=== PATIENT | male | born 1960 | race Two or more races ===

== ENCOUNTER 2020-11-21 16:07 | Outpatient (REF) | payer OTHER, SELFPAY | END 2020-11-21 16:08 | disposition home or self-care (01) | LOC: HO.LAB 16:07 | PROVIDERS: PCP Pediatrics; Visit Provider Internal Medicine | DX: Z20.822 Contact with and (suspected) exposure to COVID-19 (principal) | CPT/HCPCS: 36415; C9803; U0003 ==

== ENCOUNTER 2020-12-07 12:57 | Outpatient (REF) | payer OTHER, SELFPAY ==
--- NOTE | 2020-12-07 13:00 | US_ITS ---
EXAMINATION: US SOFT TISSUE OF THE NECK CLINICAL INFORMATION: Localized swelling, mass and lump, neck. COMPARISON: None TECHNIQUE: Linear transducer grayscale and color Doppler examination of the left parotid. FINDINGS: Complex cystic lesion is seen in the left parotid gland measuring 2.3 x 1.1 x 2.4 cm. This has superficial positioning. There is increased through transmission with mixed internal echoes. No Doppler vascularity. This is wider than tall. No additional mass identified. US/US soft tiss head and/or neck IMPRESSION: Complex cyst superficially in the left parotid gland. No abnormal solid lesion identified.
== END 2020-12-07 12:58 | disposition home or self-care (01) ==
LOC: HO.US 12:57
PROVIDERS: Visit Provider Pediatrics
DX: R22.1 Localized swelling, mass and lump, neck (principal)
CPT/HCPCS: 76536

== ENCOUNTER 2021-05-16 12:21 | Emergency (ER) | payer OTHER, SELFPAY ==
--- NOTE | ~2021-05-16 | CT_ITS ---
EXAMINATION: CT ABDOMEN AND PELVIS WITH CONTRAST CLINICAL INFORMATION: Severe Central abdominal pain. COMPARISON: CT scan pelvis April 24, 2015 TECHNIQUE: Multidetector volumetric images were obtained from the superior aspect of the liver through the pubic symphysis following administration 85 mL of Omnipaque 350 intravenous contrast. Sagittal and coronal reformatted images were obtained on the technologist's workstation. Oral contrast: No This CT examination was performed using dose optimization techniques as appropriate, variously including the following: *Automated exposure control *Adjustment of mA and/or kV according to patient size (this includes techniques or standardized protocols for targeted exams where dose is matched to indication/reason for exam; i.e. extremities or head) *Use of iterative reconstruction technique DLP: 559 mGy-cm FINDINGS: LUNG BASES: The visualized lung bases are unremarkable. Calcified granuloma at the left lung base. LIVER, GALLBLADDER, AND BILIARY TREE: The liver is normal in size, shape, and attenuation. No focal hepatic lesion or biliary ductal dilatation is present. The gallbladder is unremarkable with no evidence of radiopaque gallstones, gallbladder wall thickening, or obvious pericholecystic inflammatory changes. PANCREAS: Unremarkable. SPLEEN: Spleen mildly enlarged measuring 15 cm of length. No focal splenic lesion. Spleen is unchanged since prior study April 24, 2015. ADRENAL GLANDS: Stable nodularity and thickening left adrenal gland unchanged since CAT scan April 24, 2015. The right adrenal gland is normal. KIDNEYS AND URETERS: The kidneys are normal in size, shape, and attenuation. No hydronephrosis, hydroureter, or calculi seen. No perinephric stranding. BLADDER: Unremarkable. GASTROINTESTINAL TRACT: No acute change of bowel. There are a few scattered diverticula of the colon but no diverticulitis. No bowel wall thickening or edema. No bowel obstruction. Stomach is normal. There is no hiatal hernia. MESENTERY: There are a few scattered small calcifications in the mesentery. No inflammation or free air. ABDOMINAL WALL: Small fat-containing umbilical hernia. LYMPH NODES: Normal. VASCULAR: Unremarkable. PELVIC VISCERA: Unremarkable. OSSEOUS STRUCTURES: Degenerative spondylosis with vacuum disc phenomenon L5-S1. CT/CT abdomen pelvis w con IMPRESSION: No acute abnormality CT scan abdomen pelvis. Stable thickening and nodularity left adrenal gland unchanged since 2014. Stable splenomegaly.
[2021-05-16 12:46] VITALS: BP 133/67; PULSE 74; RESP 18; TEMP 36.7; O2SAT 98; BMI 28.5
--- NOTE | 2021-05-16 15:29 | ED.GENADULT ---
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 He reports yesterday pain was 20/10, burning in nature. He states the pain occurs every time after he eats and starts in his epigastric area and radiates down into the left upper and central abdomen. No nausea, vomiting or diarrhea. Last had a BM yesterday morning. He reports his stools have been slightly darker than usual but not black. He denies bloody stools. No SOB, chest pain, dizziness or lightheadedness. MD complaint: abdominal pain Onset (ago): week(s) Location: abdomen Radiation: periumbilical Severity: severe Severity scale (1-10): >10 Quality: burning Pain Consistency: intermittent Relieving factors: medication (took some prilosec yesterday with improvement in the pain) Exacerbating factors: eating Associated symptoms: denies other symptoms Treatments prior to arrival: none Related Data Previous Rx's Medication Instructions Recorded pantoprazole [Protonix] 40 mg PO DAILY #30 tab 05/16/21 Allergies Allergy/AdvReac Type Severity Reaction Status Date / Time levofloxacin [From LEVAQUIN] Allergy Intermediate HIVES Verified 05/16/21 12:45 Sulfa (Sulfonamide Allergy Intermediate HIVES Verified 05/16/21 12:45 Antibiotics) [SULFA (SULFONAMIDE ANTIBIOTICS)] Review of Systems Review of Systems: Constitutional: No Fever, No Chills ENT/Mouth: No sore throat, No Rhinorrhea, No Swallowing Difficulty Eyes: No Eye Pain, No Swelling, No Redness Cardiovascular: No Chest Pain, No SOB, No Orthopnea, No Edema Respiratory: No Cough, No Sputum, No Wheezing, No dyspnea Gastrointestinal: No Nausea, No Vomiting, No Diarrhea, + abdominal Pain, No Hematochezia, No Melena Genitourinary: No Dysuria, No Urinary Frequency, No Hematuria Musculoskeletal: No joint pain, No Myalgias Skin: No Skin Lesions, No rash Neuro: No Weakness, No Numbness, No Dizziness, No Headache Psych: No Anxiety/Panic, No Depression Heme/Lymph: No Bruising, No Lymphadenopathy Endocrine: No Polyuria, No Polydipsia PMF Past Medical History Attestation statement: The following information was validated with the patient. Medical History Asthma Diabetic acetonemia GERD (gastroesophageal reflux disease) Hernia HIV disease Substance abuse in remission Surgical History (Updated 05/16/21 @ 12:50 by Cara Paez RN) History of intestinal surgery Social History Social History Advance Directives: Yes Advance Directives Information Provided: Yes Advance Directives on File: No Physical Exam Vital Signs: Vital Signs: Last Vital Signs Temp 98.0 F 05/16/21 12:46 Pulse 74 05/16/21 12:46 Resp 18 05/16/21 12:46 BP 133/67 05/16/21 12:46 Pulse Ox 98 05/16/21 12:46 Body Mass Index 28.5 Appearance: Alert. Oriented X3. No acute distress. Eyes: Pupils equal, round and reactive to light. ENT: Pharynx normal. Neck: Normal inspection. Neck supple. CVS: Normal heart rate and rhythm. Pulses normal. Respiratory: No respiratory distress. Breath sounds normal. Abdomen: Normal inspection, well healed longitudinal surgical scar consistent with prior surgery, no palpable mass. mild periumbilical and epgastric tenderness, no rebound or guarding. +BS x4 Skin: Skin warm and dry. Normal skin color. Normal skin turgor. No rashes. Extremities: No lower extremity edema. Neuro: Oriented X 3. No motor deficit. No sensory deficit. Course Course Course Narrative: 60 y/o male with history of HIV, DM2, s/p bowel resection in 2004 presenting with post-prandial abdominal pain, worsening over 6 weeks. Concern for possible PUD or gastritis. Ddx also includes possible pancreatitis or cholecystitis. Will get labs and CT scan for further assessment. GI cocktail ordered. Reevaluation(s) Reevaluation #1: Blood work returning with worsening microcytic anemia - H/H now 9.4/33.7 from 11.9/37.6 six months ago. He had normal H/H and MCV in 2019. We discussed the results and concern for occult GI bleed. He declined rectal exam. He reports his last BM was yesterday and he has only been going once per day. No melena. Pain is improved with GI cocktail. Reevaluation #2: CT scan negative for acute pathology. Discussed results and concerned about PUD vs gastritis vs H pylori. Recommend follow up with GI and starting PPI. Diet and medication adjustments discussed and importance of follow up. Warning signs also discussed that should prompt urgent re-evaluation - worsening pain, hematemesis, melena and symptoms of acute blood loss. Stable for discharge home. Medical Decision Making Lab Data Result diagrams: 05/16/21 15:32 05/16/21 15:32 Labs: Lab Results 05/16/21 05/16/21 05/16/21 Range/Units 15:32 15:32 15:32 WBC 5.5 (4.8-10.8) X10*3/uL RBC 5.12 (4.60-5.80) X10*6/uL Hgb 9.4 L (14.0-18.0) g/dl Hct 33.7 L (42-52) % MCV 65.8 L (80-98) fL MCH 18.4 L (27.0-33.0) pg MCHC 27.9 L (31.0-36.0) g/dl RDW 18.7 H (11.0-16.0) % Plt Count 176 (160-400) X10*3/uL MPV Not Reportable Immature Gran % (Auto) 0.2 (0.0-0.4) % Neut % (Auto) 53.1 (45-73) % Lymph % (Auto) 37.5 (20-40) % [place] % (Auto) 7.5 (2-11) % Eos % (Auto) 1.5 (0-4) % Baso % (Auto) 0.2 (0-2) % Lymph # (Auto) 2.1 (1.2-4.9) X10*3/uL [place] # (Auto) 0.4 (0.1-1.2) X10*3/uL Eos # (Auto) 0.1 (0.0-0.4) X10*3/uL Baso # (Auto) 0.0 (0.0-0.2) X10*3/uL Abs Immat Gran (auto) 0.01 (0.00-0.03) X10*3/uL Absolute Neuts (auto) 2.9 (2.0-8.3) X10*3/uL Absolute Nucleated RBC 0.000 (0.0-0.012) X10*3/uL Nucleated RBC % (auto) 0.0 (0.0-0.2) /100WBC Hold Blue Top SEE NOTE Sodium 142 (135-145) mmol/L Potassium 4.4 (3.3-5.1) mmol/L Chloride 104 (96-108) mmol/L Carbon Dioxide 28 (22-29) mmol/L Anion Gap 14 (12-20) BUN 16 (9-16) mg/dL Creatinine 1.01 (0.5-1.4) mg/dL Estim Creat Clear Calc 79.2 Estimated GFR > 60 Random Glucose 97 (60-115) mg/dL Lactic Acid (0.5-2.0) mmol/L Calcium 9.4 (8.4-10.2) mg/dL Magnesium 2.1 (1.6-2.6) mg/dL Total Bilirubin 0.5 (0.0-1.0) mg/dL Direct Bilirubin 0.2 (0.0-0.5) mg/dL AST 16 (5-37) U/L ALT 11 (0-40) U/L Alkaline Phosphatase 71 (39-117) U/L Total Protein 6.8 (6.5-8.0) g/dL Albumin 4.1 (3.5-5.0) g/dL Lipase 41 (8-78) U/L Urine Color Urine Appearance Urine pH (5.0-8.0) Ur Specific [place] (1.005-1.025) Urine Protein (NEG-TRACE) MG/DL Urine Glucose (UA) (NEG) MG/DL Urine Ketones (NEG) MG/DL Urine Blood (NEG) Urine Nitrite (NEG) Ur Leukocyte Esterase (NEG) 05/16/21 05/16/21 Range/Units 15:42 15:48 WBC (4.8-10.8) X10*3/uL RBC (4.60-5.80) X10*6/uL Hgb (14.0-18.0) g/dl Hct (42-52) % MCV (80-98) fL MCH (27.0-33.0) pg MCHC (31.0-36.0) g/dl RDW (11.0-16.0) % Plt Count (160-400) X10*3/uL MPV Immature Gran % (Auto) (0.0-0.4) % Neut % (Auto) (45-73) % Lymph % (Auto) (20-40) % [place] % (Auto) (2-11) % Eos % (Auto) (0-4) % Baso % (Auto) (0-2) % Lymph # (Auto) (1.2-4.9) X10*3/uL [place] # (Auto) (0.1-1.2) X10*3/uL Eos # (Auto) (0.0-0.4) X10*3/uL Baso # (Auto) (0.0-0.2) X10*3/uL Abs Immat Gran (auto) (0.00-0.03) X10*3/uL Absolute Neuts (auto) (2.0-8.3) X10*3/uL Absolute Nucleated RBC (0.0-0.012) X10*3/uL Nucleated RBC % (auto) (0.0-0.2) /100WBC Hold Blue Top Sodium (135-145) mmol/L Potassium (3.3-5.1) mmol/L Chloride (96-108) mmol/L Carbon Dioxide (22-29) mmol/L Anion Gap (12-20) BUN (9-16) mg/dL Creatinine (0.5-1.4) mg/dL Estim Creat Clear Calc Estimated GFR Random Glucose (60-115) mg/dL Lactic Acid 0.7 (0.5-2.0) mmol/L Calcium (8.4-10.2) mg/dL Magnesium (1.6-2.6) mg/dL Total Bilirubin (0.0-1.0) mg/dL Direct Bilirubin (0.0-0.5) mg/dL AST (5-37) U/L ALT (0-40) U/L Alkaline Phosphatase (39-117) U/L Total Protein (6.5-8.0) g/dL Albumin (3.5-5.0) g/dL Lipase (8-78) U/L Urine Color YELLOW Urine Appearance CLEAR Urine pH 6.0 (5.0-8.0) Ur Specific [place] 1.020 (1.005-1.025) Urine Protein NEG (NEG-TRACE) MG/DL Urine Glucose (UA) NEG (NEG) MG/DL Urine Ketones 5 (NEG) MG/DL Urine Blood NEG (NEG) Urine Nitrite NEG (NEG) Ur Leukocyte Esterase NEG (NEG) Discharge Plan Discharge Clinical Impression: Abdominal pain Qualifiers: Abdominal location: epigastric Qualified Code(s): R10.13 - Epigastric pain Patient Disposition: Home, Self-Care Instructions: Peptic Ulcer (ED), Gastritis (ED), Diet for Stomach Ulcers and Gastritis (ED) Additional Instructions: Your blood work today showed some mild anemia or low blood counts. You may have a slow GI bleed or intermittent blood loss due to either gastritis or peptic ulcers. Recommend following up with GI doctor for further evaluation. Number listed below. Recommend starting Protonix 40 mg once per day to reduce the acid in your stomach and allow healing. AVOID NSAIDS like Aleve, Advil, Motrin. AVOID alcohol. AVOID acidic foods. If you develop worsening pain, black stools, chest pain, shortness of breath or any other concerning symptoms call 911 or come back to the ER right away for further evaluation. Prescriptions: New pantoprazole [Protonix] 40 mg tablet,delayed release (DR/EC) 40 mg PO DAILY Qty: 30 RF: 0 Referrals: Karli Martinez MD [Physician] - 3 days (epigastric abdominal pain, with microcytic anemia, concern for PUD or gastritis. needs EGD) Interventions: ED Discharge Assessment Last Done: 05/16/21 17:36 Discharge Date/Time: 05/16/21 17:37
[2021-05-16 15:52] LABS: Basophils Percent Auto 0.2 % (0-2); Eosinophils Absolute Auto 0.1 X10*3/uL (0.0-0.4); Imm Gran Abs Auto 0.01 X10*3/uL (0.00-0.03); Imm Gran Pct Auto 0.2 % (0.0-0.4); SCAN SMEAR FLAG 1
[2021-05-16 15:54] LABS: Eosinophils Percent Auto 1.5 % (0-4); Hematocrit 33.7 % (42-52); Hemoglobin 9.4 g/dl (14.0-18.0); Lymphocytes Absolute Auto 2.1 X10*3/uL (1.2-4.9); Lymphocytes Percent Auto 37.5 % (20-40); Mean Corpuscular HGB Conc 27.9 g/dl (31.0-36.0); Mean Corpuscular Hemoglobin 18.4 pg (27.0-33.0); Mean Corpuscular Volume 65.8 fL (80-98); Monocytes Absolute Auto 0.4 X10*3/uL (0.1-1.2); Monocytes Percent Auto 7.5 % (2-11); Neutrophils Absolute Auto 2.9 X10*3/uL (2.0-8.3); Neutrophils Percent Auto 53.1 % (45-73); Platelet Count 176 X10*3/uL (160-400); Red Blood Count 5.12 X10*6/uL (4.60-5.80); Red Cell Distribution Width 18.7 % (11.0-16.0); White Blood Count 5.5 X10*3/uL (4.8-10.8)
[2021-05-16 15:55] LABS: MANUAL DIFF FLAG NO; PLT ABN DIST 1
[2021-05-16 16:05] LABS: Glucose Urine UA NEG (NEG); Leukocyte Esterase Urine NEG (NEG); Nitrite Urine NEG (NEG); Urine Blood NEG (NEG); Urine Ketones 5 MG/DL (NEG); Urine Protein NEG (NEG-TRACE)
[2021-05-16 16:08] LABS: Appearance Urine CLEAR; Color Urine YELLOW
[2021-05-16 16:09] LABS: Lactic Acid 0.7 mmol/L (0.5-2.0)
[2021-05-16 16:13] LABS: Alanine Aminotransferase 11 U/L (0-40); Albumin Level 4.1 g/dL (3.5-5.0); Alkaline Phosphatase 71 U/L (39-117); Anion Gap 14 (12-20); Aspartate Amino Transferase 16 U/L (5-37); Bilirubin Direct 0.2 mg/dL (0.0-0.5); Bilirubin Total 0.5 mg/dL (0.0-1.0); Blood Urea Nitrogen 16 mg/dL (9-16); Calcium 9.4 mg/dL (8.4-10.2); Carbon Dioxide 28 mmol/L (22-29); Chloride 104 mmol/L (96-108); Creatinine Clr Calc Pharmacy 79.2; Estimated Glomerular Filt Rate > 60; Glucose Random 97 mg/dL (60-115); Lipase 41 U/L (8-78); Magnesium 2.1 mg/dL (1.6-2.6); Potassium 4.4 mmol/L (3.3-5.1); Sodium 142 mmol/L (135-145); Total Protein 6.8 g/dL (6.5-8.0)
[2021-05-16] MEDS: PHENobarb/Hyoscy/Atropine/Scop 10 ML ELIXIR PO (16:31)
[2021-05-16] MEDS: Lidocaine HCl Viscous 2 % 15 ML SOLUTION MUCOUS MEM (16:31)
[2021-05-16] MEDS: Magnesium Hydrox/Alum Hydrox 30 ML ORAL.SUSP PO (16:31)
[2021-05-16] MEDS: iohexoL 350 MG/ML 100 ML INFUS..BTL IV (16:50)
== END 2021-05-16 17:37 | disposition home or self-care (01) ==
PROVIDERS: Physician Assistant; Emergency Provider Emergency Medicine; PCP Pediatrics
DX: R10.13 Epigastric pain (principal); D50.9 Iron deficiency anemia, unspecified; E11.9 Type 2 diabetes mellitus without complications; Z21 Asymptomatic human immunodeficiency virus [HIV] infection status; F11.11 Opioid abuse, in remission
CPT/HCPCS: 36415; 74177; 80048; 80076; 81003; 83605; 83690; 83735; 85025; 99284; Q9967

== ENCOUNTER → 2021-05-18 08:41 | Outpatient (BNVA) | payer OTHER, SELFPAY | PROVIDERS: PCP Pediatrics; Referring Provider Pediatrics; Visit Provider Nurse Practitioner Family | DX: R10.13 Epigastric pain (principal); K21.9 Gastro-esophageal reflux disease without esophagitis; D64.9 Anemia, unspecified | CPT/HCPCS: 99202 ==

== ENCOUNTER 2021-05-21 10:10 | Emergency (ER) | payer OTHER, SELFPAY ==
[2021-05-21 10:31] VITALS: BP 104/59; PULSE 81; RESP 17; TEMP 36.8; O2SAT 96; BMI 29.1
[2021-05-21 10:58] VITALS: BP 105/60; PULSE 77; RESP 16; O2SAT 94
[2021-05-21 11:27] LABS: Eosinophils Percent Auto 0.3 % (0-4)
[2021-05-21 11:29] LABS: Alanine Aminotransferase 7 U/L (0-40); Albumin Level 3.9 g/dL (3.5-5.0); Alkaline Phosphatase 64 U/L (39-117); Anion Gap 14 (12-20); Aspartate Amino Transferase 10 U/L (5-37); Bilirubin Total 0.5 mg/dL (0.0-1.0); Blood Urea Nitrogen 25 mg/dL (9-16); Calcium 8.7 mg/dL (8.4-10.2); Carbon Dioxide 26 mmol/L (22-29); Chloride 106 mmol/L (96-108); Creatinine Clr Calc Pharmacy 85.9; Estimated Glomerular Filt Rate > 60; Glucose Random 126 mg/dL (60-115); Potassium 3.8 mmol/L (3.3-5.1); Sodium 142 mmol/L (135-145); Total Protein 6.5 g/dL (6.5-8.0)
[2021-05-21 11:29] LABS: Basophils Percent Auto 0.1 % (0-2); Hematocrit 36.5 % (42-52); Hemoglobin 10.1 g/dl (14.0-18.0); Imm Gran Abs Auto 0.03 X10*3/uL (0.00-0.03); Imm Gran Pct Auto 0.3 % (0.0-0.4); Lymphocytes Absolute Auto 0.6 X10*3/uL (1.2-4.9); Lymphocytes Percent Auto 5.9 % (20-40); Mean Corpuscular HGB Conc 27.7 g/dl (31.0-36.0); Mean Corpuscular Hemoglobin 18.1 pg (27.0-33.0); Mean Corpuscular Volume 65.3 fL (80-98); Monocytes Absolute Auto 0.8 X10*3/uL (0.1-1.2); Monocytes Percent Auto 7.5 % (2-11); Neutrophils Absolute Auto 8.7 X10*3/uL (2.0-8.3); Neutrophils Percent Auto 85.9 % (45-73); Platelet Count 183 X10*3/uL (160-400); Red Blood Count 5.59 X10*6/uL (4.60-5.80); Red Cell Distribution Width 19.1 % (11.0-16.0); White Blood Count 10.1 X10*3/uL (4.8-10.8)
[2021-05-21 12:10] LABS: Prothrombin Time 11.4 SEC (9.9-13.0)
--- NOTE | 2021-05-21 12:18 | ED.NAVMDI ---
HPI - Nausea/Vomiting/Diarrhea General Chief complaint: Nausea/Vomiting/Diarrhea Stated complaint: N/V Time Seen by Provider: 05/21/21 10:23 Source: patient and EMS Mode of arrival: EMS Limitations: no limitations History of Present Illness HPI Narrative: 60-year-old male with a past medical history of HIV on HAART, DM2, former heroin abuse clean times 15 years, history of bowel obstruction and gangrene status post 16 cm of bowel resection in 2003, GERD and hernia who presents to the ED with complaints of nausea/vomiting abdominal discomfort and feeling like he had to have a bowel movement that occurred prior to arrival. He was given 4 mg of Zofran IV and 200 mL of normal Saline via EMS and reports his symptoms have completely resolved prior to arrival. He reports that he was recently seen here for the similar complaint on 05/16/[address] scan of his abdomen and pelvis which was normal and was told that he was anemic. He then followed up with the GI provider and they believe that the patient could have gastric ulcer/peptic ulcer and they scheduled him an upper endoscopy in 2 weeks if his symptoms do not improve after pantoprazole. He reports he has been taking his medication as prescribed and was feeling a bit better although this morning the symptoms came on suddenly. He denies any fevers, dizziness, headaches, change of vision, blood in his emesis, black emesis, chest pain, shortness of breath, palpitations, dyspnea on exertion, orthopnea, abdominal pain at this time, diarrhea or constipation, black or bloody stools, dysuria or hematuria or any other symptoms complaints or concerns at this time. Denies recent travel, bad food exposure or sick contacts. MD elicited complaint: nausea, vomiting and abdominal pain Pertinent past history: other (See above) Onset (ago): minute(s) (Prior to arrival) Description of vomiting: bilious Associated nausea: Yes Associated abdominal pain: Yes Location of pain: diffuse and periumbilical Pain consistency: now resolved Severity: moderate Quality: cramping Exacerbating factors: none Relieving factors: none Associated symptoms: denies other symptoms Treatment prior to arrival: other (See above) Related Data Previous Rx's Medication Instructions Recorded docusate sodium 100 mg capsule 100 mg PO BEDTIME #30 cap 05/18/21 pantoprazole 40 mg tablet,delayed 40 mg PO DAILY #30 tab 05/18/21 release sennosides 8.6 mg tablet 8.6 mg PO BEDTIME PRN #30 tab 05/18/21 ondansetron HCl [Zofran] 4 mg PO Q8H PRN #14 tab 05/21/21 Allergies Allergy/AdvReac Type Severity Reaction Status Date / Time levofloxacin [From LEVAQUIN] Allergy Intermediate HIVES Verified 05/18/21 08:59 Sulfa (Sulfonamide Allergy Intermediate HIVES Verified 05/18/21 08:59 Antibiotics) [SULFA (SULFONAMIDE ANTIBIOTICS)] Review of Systems Review of Systems: Constitutional : No Fever, No Chills, No Night Sweats, No Fatigue, No Malaise Cardiovascular : No Chest Pain, No SOB Respiratory : No Cough, No Sputum, No Wheezing, No Dyspnea Gastrointestinal : Resolve nausea/vomiting/abdominal pain, No Diarrhea, No Hematochezia, No Melena Genitourinary : No irregular bleeding, No Dysuria, No Urinary Frequency, No Hematuria,No Urinary Incontinence, No Urgency, No Flank Pain Musculoskeletal : No joint pain, No Myalgias, No Joint Swelling Skin : No Skin Lesions, No rash Neuro : No Weakness, No Numbness, No Paresthesias, No Loss of Consciousness, No Dizziness, No Headache Heme/Lymph: No Lymphadenopathy Endocrine : No Temperature Intolerance Yes all other systems are reviewed and are negative Gastrointestinal: Gastrointestinal: Reports nausea PMFSH Past Medical History Attestation statement: The following information was validated with the patient. Medical History Asthma Diabetic acetonemia GERD (gastroesophageal reflux disease) Hernia HIV disease Substance abuse in remission Surgical History History of intestinal surgery Social History Social History Alcohol intake: never Patient Tobacco Use Status: Never used Tobacco Use of substances other than those prescribed or required for medical reasons: No Advance Directives: Yes Advance Directives Information Provided: Yes Advance Directives on File: No Physical Exam Vital Signs: Vital Signs: Last Vital Signs Temp 98.2 F 05/21/21 10:31 Pulse 77 05/21/21 10:58 Resp 16 05/21/21 10:58 BP 105/60 05/21/21 10:58 Pulse Ox 94 05/21/21 10:58 Body Mass Index 29.1 vital signs have been reviewed as normal and appeared to be correct. Blood pressure normal. Heart rate normal. Respiration rate normal. Temperature normal. Oxygen saturation normal. Appearance: Alert. Oriented X3. No acute distress. Head: Normal external exam. Normocephalic. Eyes: PERRLA. EOMI. Conjunctiva and sclera normal. Eyelids normal. ENT: Pharynx normal. Uvula midline. Moist mucous membranes. No trismus noted. No drooling noted. No muffled voice noted. Neck: Normal inspection. Neck supple. FROM. No adenopathy. No meningeal signs. CVS: Normal heart rate and rhythm. Heart sound normal. No murmurs noted. Pulses normal throughout. Respiratory: No respiratory distress. Painless inspiration. Breath sounds normal. No wheezes/rales/rhonchi noted. Chest nontender. No accessory muscle usage noted or decreased air movement noted. Abdomen: Soft and nontender. Nondistended. No guarding. No rigidity. Bowel sounds normal in all 4 quadrants. No distention noted. No organomegaly noted. No visible injury noted. No rebound tenderness. Negative Rovsing sign. Negative obturator's sign. Negative psoas sign. Negative Allen sign. Back: No CVA tenderness. Full range of motion noted. Skin: Skin warm and dry. Normal skin color. Normal skin turgor. No rashes/lesions/lacerations noted. Extremities: Extremities exhibit normal range of motion. Extremities nontender. Neuro: Oriented X 3. No motor deficit. No sensory deficit. Reflexes normal. Normal steady gait. Course Course Course Narrative: 12:30PM 60-year-old male with a past medical history of HIV on HAART, DM2, former heroin abuse clean times 15 years, history of bowel obstruction and gangrene status post 16 cm of bowel resection in 2003, GERD and hernia who presents to the ED with complaints of nausea/vomiting abdominal discomfort and feeling like he had to have a bowel movement that occurred prior to arrival. He was given 4 mg of Zofran IV and 200 mL of normal Saline via EMS and reports his symptoms have completely resolved prior to arrival. He reports that he was recently seen here for the similar complaint on 05/16/[address] scan of his abdomen and pelvis which was normal and was told that he was anemic. He then followed up with the GI provider and they believe that the patient could have gastric ulcer/peptic ulcer and they scheduled him an upper endoscopy in 2 weeks if his symptoms do not improve after pantoprazole. He reports he has been taking his medication as prescribed and was feeling a bit better although this morning the symptoms came on suddenly. LABS OBTAINED AND PATIENT'S ANEMIA HAS IMPROVED WHEN COMPARED TO PRIOR VISIT ON 05/16/2021. BUN 25. RANDOM GLUCOSE 126. OTHERWISE ALL OTHER LABS ARE WITHIN NORMAL LIMITS. Imaging not indicated as patient's symptoms have already resolved after he was given 4 mg of IV Zofran and a 200 mL of IV fluids and his abdomen is soft and nontender. He is also tolerating p.o. fluids. Therefore will DC home with instructions follow-up with GI and to return if any new or worsening symptoms will DC home with Zofran. Patient understands agrees with this plan MDM - Nausea/Vomiting/Diarrhea Medical Records Attestation: I reviewed the patient's medical records. Lab Data Attestation: I reviewed the patient's lab results. Result diagrams: 05/21/21 11:14 05/21/21 10:57 Labs: Lab Results 05/21/21 05/21/21 05/21/21 Range/Units 10:57 11:14 11:14 WBC 10.1 (4.8-10.8) X10*3/uL RBC 5.59 (4.60-5.80) X10*6/uL Hgb 10.1 L (14.0-18.0) g/dl Hct 36.5 L (42-52) % MCV 65.3 L (80-98) fL MCH 18.1 L (27.0-33.0) pg MCHC 27.7 L (31.0-36.0) g/dl RDW 19.1 H (11.0-16.0) % Plt Count 183 (160-400) X10*3/uL Immature Gran % (Auto) 0.3 (0.0-0.4) % Neut % (Auto) 85.9 H (45-73) % Lymph % (Auto) 5.9 L (20-40) % [place] % (Auto) 7.5 (2-11) % Eos % (Auto) 0.3 (0-4) % Baso % (Auto) 0.1 (0-2) % Lymph # (Auto) 0.6 L (1.2-4.9) X10*3/uL [place] # (Auto) 0.8 (0.1-1.2) X10*3/uL Eos # (Auto) 0.0 (0.0-0.4) X10*3/uL Baso # (Auto) 0.0 (0.0-0.2) X10*3/uL Abs Immat Gran (auto) 0.03 (0.00-0.03) X10*3/uL Absolute Neuts (auto) 8.7 H (2.0-8.3) X10*3/uL Absolute Nucleated RBC 0.000 (0.0-0.012) X10*3/uL Nucleated RBC % (auto) 0.0 (0.0-0.2) /100WBC Hold Purple Top PT 11.4 (9.9-13.0) SEC INR 1.0 (0.9-1.1) Sodium 142 (135-145) mmol/L Potassium 3.8 (3.3-5.1) mmol/L Chloride 106 (96-108) mmol/L Carbon Dioxide 26 (22-29) mmol/L Anion Gap 14 (12-20) BUN 25 H D (9-16) mg/dL Creatinine 0.91 (0.5-1.4) mg/dL Estim Creat Clear Calc 85.9 Estimated GFR > 60 Random Glucose 126 H (60-115) mg/dL Calcium 8.7 D (8.4-10.2) mg/dL Magnesium 2.0 (1.6-2.6) mg/dL Total Bilirubin 0.5 (0.0-1.0) mg/dL AST 10 (5-37) U/L ALT 7 (0-40) U/L Alkaline Phosphatase 64 (39-117) U/L Total Protein 6.5 (6.5-8.0) g/dL Albumin 3.9 (3.5-5.0) g/dL 05/21/21 Range/Units 11:14 WBC (4.8-10.8) X10*3/uL RBC (4.60-5.80) X10*6/uL Hgb (14.0-18.0) g/dl Hct (42-52) % MCV (80-98) fL MCH (27.0-33.0) pg MCHC (31.0-36.0) g/dl RDW (11.0-16.0) % Plt Count (160-400) X10*3/uL Immature Gran % (Auto) (0.0-0.4) % Neut % (Auto) (45-73) % Lymph % (Auto) (20-40) % [place] % (Auto) (2-11) % Eos % (Auto) (0-4) % Baso % (Auto) (0-2) % Lymph # (Auto) (1.2-4.9) X10*3/uL [place] # (Auto) (0.1-1.2) X10*3/uL Eos # (Auto) (0.0-0.4) X10*3/uL Baso # (Auto) (0.0-0.2) X10*3/uL Abs Immat Gran (auto) (0.00-0.03) X10*3/uL Absolute Neuts (auto) (2.0-8.3) X10*3/uL Absolute Nucleated RBC (0.0-0.012) X10*3/uL Nucleated RBC % (auto) (0.0-0.2) /100WBC Hold Purple Top SEE NOTE PT (9.9-13.0) SEC INR (0.9-1.1) Sodium (135-145) mmol/L Potassium (3.3-5.1) mmol/L Chloride (96-108) mmol/L Carbon Dioxide (22-29) mmol/L Anion Gap (12-20) BUN (9-16) mg/dL Creatinine (0.5-1.4) mg/dL Estim Creat Clear Calc Estimated GFR Random Glucose (60-115) mg/dL Calcium (8.4-10.2) mg/dL Magnesium (1.6-2.6) mg/dL Total Bilirubin (0.0-1.0) mg/dL AST (5-37) U/L ALT (0-40) U/L Alkaline Phosphatase (39-117) U/L Total Protein (6.5-8.0) g/dL Albumin (3.5-5.0) g/dL Discharge Plan Discharge Clinical Impression: Peptic ulcer, Nausea & vomiting, Resolved abdominal pain Patient Disposition: Home, Self-Care Instructions: Peptic Ulcer (ED), Diet for Stomach Ulcers and Gastritis (ED), Acute Nausea and Vomiting (ED) Prescriptions: New ondansetron HCl [Zofran] 4 mg tablet 4 mg PO Q8H PRN (Reason: nausea and vomiting) Qty: 14 RF: 0 No Action pantoprazole [Protonix] 40 mg tablet,delayed release (DR/EC) 40 mg PO DAILY Qty: 30 RF: 2 docusate sodium 100 mg capsule 100 mg PO BEDTIME Qty: 30 RF: 3 sennosides [Natural Senna Laxative] 8.6 mg tablet 8.6 mg PO BEDTIME PRN (Reason: constipation) Qty: 30 RF: 2 Referrals: Karli Martinez MD [Physician] - 2 days Print Language: Prydeinig
[2021-05-21 12:38] VITALS: BP 105/56; PULSE 86; RESP 17; O2SAT 98
--- NOTE | 2021-05-21 12:43 | PC.NURSE ---
Pt peripheral iv removed and pressure bandage applied. Pt denies any pain. Pt given discharge intructions and denies any questions
== END 2021-05-21 13:00 | disposition home or self-care (01) ==
PROVIDERS: Physician Assistant Medical; Emergency Provider Emergency Medicine
DX: K27.9 Peptic ulcer, site unspecified, unspecified as acute or chronic, without hemorrhage or perforation (principal); R11.2 Nausea with vomiting, unspecified; E11.9 Type 2 diabetes mellitus without complications; D64.9 Anemia, unspecified; Z21 Asymptomatic human immunodeficiency virus [HIV] infection status; F11.11 Opioid abuse, in remission; Z79.899 Other long term (current) drug therapy; Z90.49 Acquired absence of other specified parts of digestive tract
CPT/HCPCS: 36415; 80053; 83735; 85025; 85610; 99284

== ENCOUNTER → 2021-08-06 10:25 | Outpatient (BNV) | payer OTHER, SELFPAY | PROVIDERS: PCP Pediatrics; Visit Provider Internal Medicine | DX: D50.9 Iron deficiency anemia, unspecified (principal) | CPT/HCPCS: 99204; 99213; 99214 ==

== ENCOUNTER → 2021-08-08 10:43 | Outpatient (BNVA) | payer OTHER, SELFPAY | PROVIDERS: PCP Pediatrics; Referring Provider Pediatrics; Visit Provider Nurse Practitioner Family | DX: Z12.11 Encounter for screening for malignant neoplasm of colon (principal); K59.04 Chronic idiopathic constipation; D50.9 Iron deficiency anemia, unspecified | CPT/HCPCS: 99212 ==

== ENCOUNTER 2021-09-11 12:16 | Day surgery (SDC) | payer OTHER, SELFPAY ==
[2021-09-05 11:02] VITALS: BMI 29.8
--- NOTE | 2021-09-10 13:44 | HO.ANESPROP2 ---
Documented by User: Jennyfer Martinez NP 09/10/21 13:45 HPI - Anesthesia Eval Consult details Narrative: 61yo M for Upper Endoscopy and Colonoscopy suboxone daily PMFSH Active Problems Active Problems: All Active Problems (Updated 09/05/21 @ 11:02 by Emilee Vargas RN) Anemia (Acute) Past Medical History Medical History (Updated 09/05/21 @ 11:02 by Emilee Vargas, MARIA GUADALUPE) Asthma COVID-19 vaccine series completed Diabetes GERD (gastroesophageal reflux disease) Hernia HIV disease Iron deficiency anemia Substance abuse in remission Family History Family History Mother Cervical cancer Maternal Uncle Lung cancer Maternal Uncle Lung cancer Sister Anemia Surgical History Surgical History (Updated 09/05/21 @ 11:00 by Emilee Vargas RN) H/O colonoscopy History of intestinal surgery Social History Social History Are you a primary long term care social worker to a significant other at home: No Do you presently have visiting nurse or other home services: No Alcohol intake: never Patient Tobacco Use Status: Current everyday Tobacco user Tobacco use type: Cigarette Cigarette Packs Per Day: 0.5 Cigarettes Per Day: 10 Years Smoked: 42 Substance Use Type Other:: opiates-taking suboxone at present time Have you been hit, kicked, punched, or otherwise hurt by someone within the past year? If so, by whom?: No Are you DNR?: No Advance Directives Information Provided: Yes (informational brochure mailed) Advance Directives on File: No Recently lost weight without trying: No Eating poorly because of decreased appetite: No Nutrition Risks: No Nutritional Risk Poor oral hygiene: No (upper full denture) Meds Allergies Allergy/AdvReac Type Severity Reaction Status Date / Time levofloxacin [From LEVAQUIN] Allergy Severe hives/swell Verified 09/11/21 12:43 ing Sulfa (Sulfonamide Allergy Severe hives/swell Verified 09/11/21 12:43 Antibiotics) ing [SULFA (SULFONAMIDE ANTIBIOTICS)] Home Medications Medication Instructions Recorded Confirmed Last Taken Type buprenorphine 8 mg-naloxone 2 mg 2 film SUBLINGUAL DAILY 08/06/21 09/11/21 09/11/21 11:00 History sublingual film (Suboxone) 11/11 @0500,11/11 @1100 ferrous sulfate 325 mg (65 mg 1 tab PO BID 08/06/21 09/05/21 Unknown History iron) tablet,delayed release albuterol sulfate 90 mcg/actuation 2 puff PO Q4-6H PRN 09/05/21 09/11/21 09/11/21 11:45 History aerosol inhaler elviteg 150 mg-cob 150 mg-emtricit 1 tab PO DAILY 09/05/21 09/11/21 09/11/21 05:00 History 200 mg-tenofo alafenam 10 mg tablet (Genvoya) pantoprazole 40 mg tablet,delayed 40 mg PO DAILY PRN 09/05/21 09/05/21 Unknown History release (Protonix) sitagliptin 25 mg tablet (Januvia) 1 tab PO DAILY 09/05/21 09/05/21 Unknown History Exam Exam Date and Time: September 10, 2021 1344 Height,Weight and Vital Signs: Height 5 ft 6 in Weight 83.915 kg Pertinent Lab Results Pertinent Lab Results: Laboratory Tests 05/21/21 08/06/21 10:57 11:45 WBC 8.1 Hgb 10.5 L Hct 37.2 L Plt Count 165 Sodium 142 Potassium 3.8 Chloride 106 Carbon Dioxide 26 BUN 25 H D Creatinine 0.91 Assessment and Plan Assessment Anesthesia Assessment: Chart Reviewed Documented by User: Laisha Melendez MD 09/11/21 13:16 [facility] Past Medical History Medical History (Updated 09/05/21 @ 11:02 by Emilee Vargas RN) Asthma COVID-19 vaccine series completed Diabetes GERD (gastroesophageal reflux disease) Hernia HIV disease Iron deficiency anemia Substance abuse in remission Family History Family History Mother Cervical cancer Maternal Uncle Lung cancer Maternal Uncle Lung cancer Sister Anemia Surgical History Surgical History (Updated 09/05/21 @ 11:00 by Emilee Vargas RN) H/O colonoscopy History of intestinal surgery Social History Social History Are you a primary long term care social worker to a significant other at home: No Do you presently have visiting nurse or other home services: No Alcohol intake: never Patient Tobacco Use Status: Current everyday Tobacco user Tobacco use type: Cigarette Cigarette Packs Per Day: 0.5 Cigarettes Per Day: 10 Years Smoked: 42 Substance Use Type Other:: opiates-taking suboxone at present time Have you been hit, kicked, punched, or otherwise hurt by someone within the past year? If so, by whom?: No Are you DNR?: No Advance Directives Information Provided: Yes (informational brochure mailed) Advance Directives on File: No Recently lost weight without trying: No Eating poorly because of decreased appetite: No Nutrition Risks: No Nutritional Risk Poor oral hygiene: No (upper full denture) Meds Allergies Allergy/AdvReac Type Severity Reaction Status Date / Time levofloxacin [From LEVAQUIN] Allergy Severe hives/swell Verified 09/11/21 12:43 ing Sulfa (Sulfonamide Allergy Severe hives/swell Verified 09/11/21 12:43 Antibiotics) ing [SULFA (SULFONAMIDE ANTIBIOTICS)] Home Medications Medication Instructions Recorded Confirmed Last Taken Type buprenorphine 8 mg-naloxone 2 mg 2 film SUBLINGUAL DAILY 08/06/21 09/11/21 09/11/21 11:00 History sublingual film (Suboxone) 1/2 @0500,1/2 @1100 ferrous sulfate 325 mg (65 mg 1 tab PO BID 08/06/21 09/05/21 Unknown History iron) tablet,delayed release albuterol sulfate 90 mcg/actuation 2 puff PO Q4-6H PRN 09/05/21 09/11/21 09/11/21 11:45 History aerosol inhaler elviteg 150 mg-cob 150 mg-emtricit 1 tab PO DAILY 09/05/21 09/11/21 09/11/21 05:00 History 200 mg-tenofo alafenam 10 mg tablet (Genvoya) pantoprazole 40 mg tablet,delayed 40 mg PO DAILY PRN 09/05/21 09/05/21 Unknown History release (Protonix) sitagliptin 25 mg tablet (Januvia) 1 tab PO DAILY 09/05/21 09/05/21 Unknown History Exam Airway Mallampati Class: III TM Dist: >3cm Neck ROM: Full
[2021-09-11 13:03] VITALS: BP 119/77; PULSE 72; RESP 16; TEMP 36.2; O2SAT 97
[2021-09-11 13:07] LABS: Glucose, Whole Blood 114 mg/dL (60-115)
--- NOTE | 2021-09-11 13:24 | P.CONAN_ITS ---
[facility] Active Problems Active Problems: All Active Problems (Updated 09/11/21 @ 13:19 by Nicki mark) Anemia (Acute) Past Medical History Medical History (Updated 09/11/21 @ 13:19 by Nicki Jordan) Asthma COVID-19 vaccine series completed Diabetes GERD (gastroesophageal reflux disease) Hernia HIV disease Iron deficiency anemia Right bundle branch block (RBBB) Substance abuse in remission Family History Family History Mother Cervical cancer Maternal Uncle Lung cancer Maternal Uncle Lung cancer Sister Anemia Surgical History Surgical History (Updated 09/05/21 @ 11:00 by Emilee Vargas RN) H/O colonoscopy History of intestinal surgery Social History Social History Are you a primary primary care provider to a significant other at home: No Do you presently have visiting nurse or other home services: No Alcohol intake: never Patient Tobacco Use Status: Current everyday Tobacco user Tobacco use type: Cigarette Cigarette Packs Per Day: 0.5 Cigarettes Per Day: 10 Years Smoked: 42 Substance Use Type Other:: opiates-taking suboxone at present time Have you been hit, kicked, punched, or otherwise hurt by someone within the past year? If so, by whom?: No Are you DNR?: No Advance Directives Information Provided: Yes (informational brochure mailed) Advance Directives on File: No Recently lost weight without trying: No Eating poorly because of decreased appetite: No Nutrition Risks: No Nutritional Risk Poor oral hygiene: No (upper full denture) Meds Allergies Allergy/AdvReac Type Severity Reaction Status Date / Time levofloxacin [From LEVAQUIN] Allergy Severe hives/swell Verified 09/11/21 12:43 ing Sulfa (Sulfonamide Allergy Severe hives/swell Verified 09/11/21 12:43 Antibiotics) ing [SULFA (SULFONAMIDE ANTIBIOTICS)] Active Medications: Current Medications Albuterol Sulfate (Albuterol Sulfate (0.083%) 2.5 Mg/3 Ml Vial.Neb) 2.5 mg INHALE ONCE PRN PRN Reason: Shortness of Breath/Wheezing Lactated Ringer's (Lr) 1,000 mls @ 100 mls/hr IVCONT .Q10H [facility] Home Medications Medication Instructions Recorded Confirmed Last Taken Type buprenorphine 8 mg-naloxone 2 mg 2 film SUBLINGUAL DAILY 08/06/21 09/11/21 09/11/21 11:00 History sublingual film (Suboxone) 11/11 @0500,11/11 @1100 ferrous sulfate 325 mg (65 mg 1 tab PO BID 08/06/21 09/05/21 Unknown History iron) tablet,delayed release albuterol sulfate 90 mcg/actuation 2 puff PO Q4-6H PRN 09/05/21 09/11/21 09/11/21 11:45 History aerosol inhaler elviteg 150 mg-cob 150 mg-emtricit 1 tab PO DAILY 09/05/21 09/11/21 09/11/21 05:00 History 200 mg-tenofo alafenam 10 mg tablet (Genvoya) pantoprazole 40 mg tablet,delayed 40 mg PO DAILY PRN 09/05/21 09/05/21 Unknown History release (Protonix) sitagliptin 25 mg tablet (Januvia) 1 tab PO DAILY 09/05/21 09/05/21 Unknown History Exam Exam Date and Time: September 11, 2021 1324 Height,Weight and Vital Signs: Height 5 ft 6 in Weight 83.915 kg Last Vital Signs Temp 97.1 F 09/11/21 13:03 Pulse 72 09/11/21 13:03 Resp 16 09/11/21 13:03 BP 119/77 09/11/21 13:03 Pulse Ox 97 09/11/21 13:03 Pertinent Lab Results Pertinent Lab Results: Laboratory Tests 09/11/21 13:01 POC Glucose 114 Airway Denture: Upper
--- NOTE | 2021-09-11 13:27 | MHC.SHP ---
Pre-Procedural Eval Section A Date of Service: 09/11/21 The patient is an INPATIENT: No The History & Physical has been completed within 30 days and I have reviewed it.: No Section B Chief Complaint: Screening Details of Present Illness: Colon cancer screening, iron deficiency anemia Relevant Family History (Specify if Yes): No Relevant Social History: Tobacco Use Present Medications: see Short Stay Collaborative assessment Medical History: Significant History (Asthma Diabetic acetonemia GERD (gastroesophageal reflux disease) Hernia HIV disease Substance abuse in remission) History of Previous Operations: Relevant previous surgery/procedure and date(s) (hx of intestinal surgery) Allergies: Allergies Allergy/AdvReac Type Severity Reaction Status Date / Time levofloxacin [From LEVAQUIN] Allergy Severe hives/swell Verified 09/11/21 12:43 ing Sulfa (Sulfonamide Allergy Severe hives/swell Verified 09/11/21 12:43 Antibiotics) ing [SULFA (SULFONAMIDE ANTIBIOTICS)] Review of Systems Sugical H&P ROS: Negative: Constitution, Cardiovascular, Respiratory and Gastrointestinal Exam Surgical H&P Exam: Normal: Heart, Normal: Lungs, Normal: Extremities and Normal: Abdomen Plan Diagnosis/Plan: Unchanged I have reviewed the history and physical and performed a pertinent physical examination on my patient. No changes have occurred unless specified.
[2021-09-11] MEDS: Lactated Ringers 1,000 ML 100 ML IVCONT (13:29)
--- NOTE | 2021-09-11 14:29 | P.BOP_ITS ---
Brief Operative Note Date of Service: 09/11/21 Pre-op diagnosis: Colon cancer screening, iron def anemia Post-op diagnosis: other (Gastritis, colon polyps, diverticulosis, hemorrhoids) Procedure: FLEXIBLE TRANSORAL UPPER GASTROINTESTINAL ENDOSCOPY WITH BIOPSIES AND COLONOSCOPY TILL CECUM WITH BIOPSIES AND SNARE POLYPECTOMY UPPER ENDOSCOPY Consent: Indications for the procedure and potential complications of bleeding, perforation, reaction to medications and missed diagnosis were discussed with the patient and informed consent was obtained. Instrument: Olympus GIF H 190 mid size upper endoscope Monitoring: Vital signs and clinical assessment, continuous EKG monitoring, Pulse oximetry, Carbon Dioxide monitoring and blood pressure monitoring were done throughout the procedure. Procedure: The patient was placed in the left lateral decubitis position and pre-procedure medications were administered and a bite block was placed. The endoscope was inserted into the mouth and advanced under direct vision to the third part of duodenum. A careful inspection was made as the upper endoscope was withdrawn including a retroflexed examination of the proximal stomach; Findings and interventions are described below. Findings: Larynx: Normal Esophagus: GE junction at 40 cms. No esophagitis or Stratton's. Stomach: Moderate gastric erythema with nodular appearing mucosa in the gastric body. Biopsies were obtained from the gastric body and antrum. Grade 2 flap valve on retroflexed examination of the cardia. Duodenum: Normal bulb and descending duodenum. Biopsies were obtained from 3rd part of duodenum to check for celiac sprue. Intervention: Biopsies as noted above COLONOSCOPY PROCEDURE NOTE Consent: Indications for the procedure and potential complications of bleeding, perforation, reaction to medications and missed diagnosis were discussed with the patient and informed consent was obtained. Instrument: Olympus PCF H 190 L variable stiffness pediatric colonoscope Monitoring: Vital signs and clinical assessment, intermittent blood pressure monitoring, continuous EKG monitoring, Pulse oximetry and Carbon Dioxide monitoring were done throughout the procedure. Colon withdrawl time was 27 minutes. Procedure: The patient was placed in the left lateral decubitis position and pre-procedure medications were administered. After a digital rectal examination of the ano-rectum, the video colonoscope was inserted into the rectum and advanced through the colon to the cecum. The colonoscope was slowly withdrawn in a retrograde panoramic fashion and the colon mucosa was carefully examined including a retroflexed view of the rectum. Findings and interventions are described below. Procedure Difficulty: : Colon was long and tortuous and there was some loop formation. No maneuvers were required Findings: Terminal Ileum: Not evaluated Cecum: Partially obscured by undigested vegetable matter. A 4-5 mm sessile polyp removed with a cold bx. Ascending Colon: Normal Transverse Colon: Three 12-15 mm sessile polyps removed with a hot snare Descending Colon: Moderate diverticulosis Sigmoid Colon: Two 10-15 mm sessile polyps removed with a hot snare. Moderate diverticulosis Rectum: Normal Ano-rectum: Moderate internal hemorrhoids Colon preparation: Good after copious irrigation Impression and Post Procedure Diagnosis: Endoscopy Findings: STOMACH: Moderate gastric erythema with nodular appearing mucosa in the gastric body. DUODENUM: Normal - bxed to check for celiac sprue Colonoscopy Findings: Six small to medium sized polyps removed Moderate diverticulosis seen in the left colon Moderate hemorrhoids on retroflexed exam. Anemia is likely a combination of Vitamin B 12 deficiency and ANDREI due to slow GI blood loss from multiple medium sized colon polyps Plan: Await pathology results Patient has an appointment on 09/28/21 in the GI Clinic with Jacquie Up FNP-BC. Monitor CBC, Ferritin and Vitamin B 12 levels on FU. Repeat Colonoscopy interval based on path results - in 3 years if polyps are adenomatous and 10 years if polyps are hyperplastic. Above findings were reviewed with the patient and colon polyps and Gastritis handouts were given in the discharge area Surgeon: Silverio Quinonez MD Anesthesia: MAC (Lily Patterson CRNA) Was an Basketballs And Footballs Reverser used for this Procedure?: No Basketballs And Footballs Reverser: Anay Arce Estimated blood loss (mL): 0 Pathology: other (A. small bowel biopsies, R/O sprue B. gastric antrum, R/O H. pylori C. gastric body D. cecal polyp E. transverse colon polyps (3) F. sigmoid polyps (2)) Condition: stable Disposition: PACU
--- NOTE | 2021-09-11 14:30 | P.OP_ITS ---
Operative Note Operative Note Date of Service: 09/11/21 Narrative: Pre-op diagnosis:?Colon cancer screening, iron def anemia Post-op diagnosis:?other (Gastritis, colon polyps, diverticulosis, hemorrhoids) Procedure:? FLEXIBLE TRANSORAL UPPER GASTROINTESTINAL ENDOSCOPY WITH BIOPSIES AND COLONOSCOPY TILL CECUM WITH BIOPSIES AND SNARE POLYPECTOMY UPPER ENDOSCOPY Consent:?Indications for the procedure and potential complications of bleeding, perforation, reaction to medications and missed diagnosis were discussed with the patient and informed consent was obtained. Instrument:?Olympus GIF H 190 mid size upper endoscope Monitoring: Vital signs and clinical assessment, continuous EKG monitoring, Pulse oximetry, Carbon Dioxide monitoring and blood pressure monitoring were done throughout the procedure. Procedure:?The patient was placed in the left lateral decubitis position and pre-procedure medications were administered and a bite block was placed. The endoscope was inserted into the mouth and advanced under direct vision to the third part of duodenum. A careful inspection was made as the upper endoscope was withdrawn including a retroflexed examination of the proximal stomach; Findings and interventions are described below. Findings: Larynx:? Normal Esophagus: GE junction at 40 cms.? No esophagitis or Stratton's. Stomach: Moderate gastric erythema with nodular appearing mucosa in the gastric body.? Biopsies were obtained from the gastric body and antrum.? Grade 2 flap valve on retroflexed examination of the cardia. Duodenum: Normal bulb and descending duodenum.? Biopsies were obtained from 3rd part of duodenum to check for celiac sprue. Intervention: Biopsies as noted above COLONOSCOPY PROCEDURE NOTE Consent:?Indications for the procedure and potential complications of bleeding, perforation, reaction to medications and missed diagnosis were discussed with the patient and informed consent was obtained. Instrument:?Olympus PCF H 190 L variable stiffness pediatric colonoscope Monitoring:?Vital signs and clinical assessment, intermittent blood pressure monitoring, continuous EKG monitoring, Pulse oximetry and Carbon Dioxide monitoring were done throughout the procedure. Colon withdrawl time was 27 minutes. Procedure:?The patient was placed in the left lateral decubitis position and pre-procedure medications were administered. After a digital rectal examination of the ano-rectum, the video colonoscope was inserted into the rectum and advanced through the colon to the cecum. The colonoscope was slowly withdrawn in a retrograde panoramic fashion and the colon mucosa was carefully examined including a retroflexed view of the rectum. Findings and interventions are described below. Procedure Difficulty:?:? Colon was long and tortuous and there was some loop formation.? No maneuvers were required Findings: Terminal Ileum: Not evaluated Cecum:? Partially obscured by undigested vegetable matter. A 4-5 mm sessile polyp removed with a cold bx. Ascending Colon:? Normal Transverse Colon:? Three 12-15 mm sessile polyps removed with a hot snare Descending Colon: ? Moderate diverticulosis Sigmoid Colon:? Two 10-15 mm sessile polyps removed with a hot snare. Moderate diverticulosis Rectum:? Normal Ano-rectum:? Moderate internal hemorrhoids Colon preparation:? Good? after copious irrigation Impression and Post Procedure Diagnosis: Endoscopy Findings: STOMACH: Moderate gastric erythema with nodular appearing mucosa in the gastric body.? DUODENUM: Normal - bxed to check for celiac sprue Colonoscopy Findings: Six small to medium sized polyps removed Moderate diverticulosis seen in the left colon Moderate hemorrhoids on retroflexed exam. Anemia is likely a combination of Vitamin B 12 deficiency and ANDREI due to slow GI blood loss from multiple medium sized colon polyps Plan: Await pathology results Patient has an appointment on 09/28/21 in the GI Clinic with ? Jacquie Up FNP-JAY. Monitor CBC, Ferritin and Vitamin B 12 levels on FU. Repeat Colonoscopy interval based on path results - in 3 years if polyps are adenomatous and 10 years if polyps are hyperplastic. Above findings were reviewed with the patient and colon polyps and Gastritis handouts were given in the discharge area Surgeon:?Silverio Quinonez MD Anesthesia:?MAC (Lily Patterson CRNA) Was an Professor Of Chemical Engineering used for this Procedure?:?No Professor Of Chemical Engineering:?Anay Arce Estimated blood loss (mL):?0 Pathology:?other (A. small bowel biopsies, R/O sprue? B. gastric antrum, R/O H. pylori? C. gastric body? D. cecal polyp? E. transverse colon polyps (3)? F. sigmoid polyps (2)) Condition:?stable Disposition:?PACU
[2021-09-11 15:50] VITALS: BP 91/57; PULSE 65; RESP 16; TEMP 36.2; O2SAT 98
[2021-09-11 16:15] VITALS: BP 129/75; PULSE 69; RESP 18; TEMP 36.2; O2SAT 97
== END 2021-09-11 16:22 | disposition home or self-care (01) ==
PROVIDERS: PCP Pediatrics; Visit Provider Internal Medicine Gastroenterology
PROC: (CPT 45385; principal; 2021-09-11 13:30)
DX: Z12.11 Encounter for screening for malignant neoplasm of colon (principal); D12.3 Benign neoplasm of transverse colon; D12.5 Benign neoplasm of sigmoid colon; K63.5 Polyp of colon; K57.30 Diverticulosis of large intestine without perforation or abscess without bleeding; K64.8 Other hemorrhoids; D50.9 Iron deficiency anemia, unspecified; K21.9 Gastro-esophageal reflux disease without esophagitis; K29.50 Unspecified chronic gastritis without bleeding; J45.909 Unspecified asthma, uncomplicated; E11.9 Type 2 diabetes mellitus without complications; Z79.84 Long term (current) use of oral hypoglycemic drugs; Z79.899 Other long term (current) drug therapy; Z88.2 Allergy status to sulfonamides; Z88.1 Allergy status to other antibiotic agents; Z21 Asymptomatic human immunodeficiency virus [HIV] infection status; F17.210 Nicotine dependence, cigarettes, uncomplicated
CPT/HCPCS: 45385; 45380; 43239; 82947; 88305; 88342; J3010

== ENCOUNTER → 2021-09-28 10:54 | Outpatient (BNVA) | payer OTHER, SELFPAY | PROVIDERS: PCP Pediatrics; Referring Provider Pediatrics; Visit Provider Nurse Practitioner Family | DX: K21.9 Gastro-esophageal reflux disease without esophagitis (principal); K57.90 Diverticulosis of intestine, part unspecified, without perforation or abscess without bleeding; D50.9 Iron deficiency anemia, unspecified; D12.6 Benign neoplasm of colon, unspecified; R19.7 Diarrhea, unspecified; R74.8 Abnormal levels of other serum enzymes; E11.9 Type 2 diabetes mellitus without complications; I45.10 Unspecified right bundle-branch block; F17.210 Nicotine dependence, cigarettes, uncomplicated; B20 Human immunodeficiency virus [HIV] disease; Z98.890 Other specified postprocedural states; Z88.2 Allergy status to sulfonamides; Z88.8 Allergy status to other drugs, medicaments and biological substances | CPT/HCPCS: 99212 ==

== ENCOUNTER 2021-10-02 09:52 | Outpatient (REF) | payer OTHER, SELFPAY ==
[2021-10-02 10:27] LABS: Hematocrit 41.7 % (42.0-52.0); Hemoglobin 12.9 g/dl (14.0-18.0); Mean Corpuscular HGB Conc 30.9 g/dl (31.0-36.0); Mean Corpuscular Hemoglobin 27.1 pg (27.0-33.0); Mean Corpuscular Volume 87.6 fL (80.0-98.0); Mean Platelet Volume 10.3 fL (9.4-12.4); Platelet Count 154 X10*3/uL (160-400); Red Blood Count 4.76 X10*6/uL (4.60-5.80); Red Cell Distribution Width 17.1 % (11.0-16.0); White Blood Count 6.4 X10*3/uL (4.8-10.8)
[2021-10-02 11:06] LABS: Ferritin 27 ng/mL (20-250)
[2021-10-02 11:18] LABS: Folate 11.3 ng/mL (> or = 4.0); Vitamin B12 177 pg/mL (200-900)
== END 2021-10-02 09:53 | disposition home or self-care (01) ==
LOC: HO.LAB 09:52
PROVIDERS: Visit Provider Nurse Practitioner Family
DX: R19.7 Diarrhea, unspecified (principal); R74.8 Abnormal levels of other serum enzymes
CPT/HCPCS: 36415; 82607; 82728; 82746; 85027

== ENCOUNTER 2022-02-28 08:47 | Outpatient (REF) | payer OTHER, SELFPAY ==
[2022-02-28 09:10] LABS: MANUAL DIFF FLAG NO
[2022-02-28 09:52] LABS: Basophils Percent Auto 0.2 % (0-2); Eosinophils Absolute Auto 0.1 X10*3/uL (0.0-0.4); Hematocrit 39.6 % (42.0-52.0); Hemoglobin 12.2 g/dl (14.0-18.0); Imm Gran Abs Auto 0.03 X10*3/uL (0.00-0.03); Imm Gran Pct Auto 0.5 % (0.0-0.4); Lymphocytes Absolute Auto 1.4 X10*3/uL (1.2-4.9); Lymphocytes Percent Auto 23.1 % (20-40); Mean Corpuscular HGB Conc 30.8 g/dl (31.0-36.0); Mean Corpuscular Hemoglobin 27.5 pg (27.0-33.0); Mean Corpuscular Volume 89.4 fL (80.0-98.0); Mean Platelet Volume 11.9 fL (9.4-12.4); Monocytes Absolute Auto 0.4 X10*3/uL (0.1-1.2); Neutrophils Absolute Auto 4.2 x10*3/uL (2.0-8.3); Neutrophils Percent Auto 68.2 % (45-73); Platelet Count 153 X10*3/uL (160-400); Red Blood Count 4.43 X10*6/uL (4.60-5.80); Red Cell Distribution Width 12.6 % (11.0-16.0); White Blood Count 6.1 X10*3/uL (4.8-10.8)
[2022-02-28 10:27] LABS: Cholesterol 143 mg/dL; HDL Cholesterol 40 mg/dL; LDL Cholesterol Calculated 82 mg/dl; Triglycerides 105 mg/dL
[2022-02-28 10:31] LABS: Prostate Specific Antigen 0.13 ng/mL (<0.05-4.0); Vitamin D 25-OH Total 12.1 ng/mL (>30)
[2022-02-28 10:52] LABS: Vitamin B12 < 146 pg/mL (200-900)
[2022-03-01 14:11] LABS: Absolute CD3 Count 952 cells/uL (840-3060); Absolute CD4 Count 512 cells/uL (490-1740); Absolute CD8 Count 424 cells/uL (180-1170); Absolute Lymphocytes 1461 cells/uL (850-3900); CD4 CD8 Ratio 1.21 (0.86-5.00); Percent CD3 Cells 65 % (57-85); Percent CD4 Cells 35 % (30-61); Percent CD8 Cells 29 % (12-42)
[2022-03-02 16:06] LABS: HCV Log PCR <1.18 NOT DETECTED Log IU/mL (NOT DETECTED); HepC Viral Load <15 NOT DETECTED IU/mL (NOT DETECTED)
[2022-03-03 16:17] LABS: TS Negative Control Passed; TS Panel A 0; TS Panel B 0; TS Positive Control Passed; TSpotTB Negative (SeeBelow)
[2022-03-04 14:37] LABS: HIV RNA PCR Qn Copies <20 DETECTED copies/mL (NOT DETECTED); HIV RNA PCR Qn Log Copies <1.30 DETECTED (NOT DETECTED)
== END 2022-02-28 08:48 | disposition home or self-care (01) ==
LOC: HO.LAB 08:47
PROVIDERS: Absent Provider Pediatrics; PCP Pediatrics; Visit Provider Internal Medicine
DX: B20 Human immunodeficiency virus [HIV] disease (principal); B18.2 Chronic viral hepatitis C; D50.9 Iron deficiency anemia, unspecified
CPT/HCPCS: 36415; 80061; 82306; 82607; 84153; 85025; 86359; 86360; 86481; 87522; 87536

== ENCOUNTER 2022-05-06 14:00 | Outpatient (REF) | payer OTHER, SELFPAY ==
--- NOTE | ~2022-05-06 | US_ITS ---
EXAMINATION: US SOFT TISSUE NECK CLINICAL INFORMATION: Right-sided soft tissue and lung COMPARISON: None TECHNIQUE: Ultrasound of the neck soft tissues is performed with high- frequency damon-scale imaging and color Doppler. FINDINGS: THYROID BED: Prior thyroidectomy. No residual thyroid tissue demonstrated in the thyroid bed. No cystic or solid nodules demonstrated in the thyroid bed. RIGHT NECK SOFT TISSUES: There are 4 abnormal lymph nodes in the right. The largest nodes are as follows: Level 2: 2.9 x 1.5 x 3.3 cm. Abnormal mimi architecture/diffusely hypoechoic with absent hilum. No flow detected. Level 5A: 2.6 x 1 x 1.9 cm. Abnormal mimi architecture/diffusely hypoechoic with absent hilum and abnormal cortical flow LEFT NECK SOFT TISSUES: There is a single normal-appearing left cervical lymph node. The largest nodes are as follows: Level 2: 2 x 0.8 x 1 cm. Normal mimi architecture. US/US soft tiss head and/or neck IMPRESSION: Enlarged abnormal appearing right cervical lymph nodes. Infectious, inflammatory and neoplastic processes should be considered. This would be amenable to ultrasound-guided aspiration if clinically indicated.
== END 2022-05-06 14:01 | disposition home or self-care (01) ==
LOC: HO.HMGCX 14:00
PROVIDERS: Visit Provider Family Medicine
DX: R22.1 Localized swelling, mass and lump, neck (principal)
CPT/HCPCS: 76536

== ENCOUNTER 2022-05-21 09:25 | Outpatient (REF) | payer OTHER, SELFPAY ==
--- NOTE | ~2022-05-21 | US_ITS ---
EXAMINATION: ULTRASOUND-GUIDED FINE-NEEDLE BIOPSY/ASPIRATION RIGHT SUBMANDIBULAR LYMPH NODE CLINICAL INFORMATION: Abnormal right anterior and posterior neck lymph nodes. COMPARISON: None TECHNIQUE: Following explaining ultrasound-guided fine-needle aspiration biopsy of right submandibular space lymph node procedure, benefits and risks, a written consent was obtained. Patient was placed supine on ultrasound stretcher and preliminary ultrasound imaging was obtained. An optimal site was selected along the right submandibular space and marked. The marked site was cleaned and draped in usual sterile manner. 1% lidocaine was injected at puncture site. A 25-gauge needle was then inserted through the skin into the submandibular lymph node under sterile ultrasound guidance x3. The needle was withdrawn and complete hemostasis achieved at puncture site after achieving adequate amount of sample. Sterile dressing applied postprocedure. Patient was anxious to begin with, and had some pain during the exam, but no bleeding was observed postprocedure. FINDINGS: On preliminary ultrasound imaging there is a large right submandibular lymph node measuring 2.8 x 1.42 cm. Also visualized were right posterior neck abnormal lymph nodes. Approximately 3-pass fine-needle biopsy aspiration of the largest right submandibular lymph node was performed. Preliminary results revealed lymphocytes. Samples were also sent for flow cytometry. US/US guided fine needle asp IMPRESSION: On preliminary imaging there is a large right submandibular lymph node and a few moderate scattered right posterior neck lymph nodes. Successful ultrasound fluoroscopy-guided right submandibular space lymph node fine-needle biopsy performed.
== END 2022-05-21 09:26 | disposition home or self-care (01) ==
LOC: HO.US 09:25
PROVIDERS: Radiology Diagnostic Radiology; Visit Provider Family Medicine
DX: R22.1 Localized swelling, mass and lump, neck (principal)
CPT/HCPCS: 10005; 36415; 88172; 88173; 88177; 88184; 88185; 88305

== ENCOUNTER → 2022-07-04 14:22 | Outpatient (BNVA) | payer OTHER, SELFPAY | PROVIDERS: PCP Pediatrics; Visit Provider Surgery | DX: R59.0 Localized enlarged lymph nodes (principal); B20 Human immunodeficiency virus [HIV] disease; Z98.890 Other specified postprocedural states | CPT/HCPCS: 99202 ==

== ENCOUNTER 2022-07-08 08:50 | Outpatient (REF) | payer OTHER, SELFPAY ==
--- NOTE | ~2022-07-08 | CT_ITS ---
EXAMINATION: CT SOFT TISSUE NECK WITH CONTRAST CLINICAL INFORMATION: Right neck mass. COMPARISON: None TECHNIQUE: Following the administration of 100 mL of Omnipaque 300 intravenous contrast, helical imaging was performed in the axial plane with generation of coronal and sagittal reformatted images. This CT examination was performed using dose optimization techniques as appropriate, variously including the following: *Automated exposure control *Adjustment of mA and/or kV according to patient size (this includes techniques or standardized protocols for targeted exams where dose is matched to indication/reason for exam; i.e. extremities or head) *Use of iterative reconstruction technique DLP: 341 mGy-cm FINDINGS: Multiple abnormal enlarged lymph nodes are seen in the right neck at level 2a, 2b, and 3. The largest lymph node at level 2 measures 2.4 cm. A mildly enlarged 1.5 cm level 2b lymph node is seen The palatine tonsillar fossa appears symmetric. No definite base of tongue lesion is seen. Lingual tonsils appear prominent and extending into the vallecula. The laryngeal contours appear normal with symmetric vocal folds. The right submandibular gland is asymmetrically prominent and extends more superiorly than the left. A 2.0 cm well-circumscribed hyperdense nodule seen within the superficial aspect of the left parotid gland. There is a 1.9 cm nodule in the left lobe of the thyroid gland. No enlarged upper mediastinal lymph nodes are seen. Numerous sub-4 mm nodules are seen within the upper lungs. A few tree-in-bud nodules are also present in the right lung. The imaged intracranial contents appear normal. The major neck vessels appear grossly patent no destructive changes are seen within the osseous structures. Mild degenerative changes are seen in the spine. There is mild paranasal sinus mucosal thickening. CT/CT soft tissue neck w IV con IMPRESSION: Several enlarged lymph nodes are seen in the left neck at level 2A, 2B, and 3. The largest lymph node measures up to 2.4 cm. A right-sided pharyngeal lesion is suspected although no gross palatine tonsil or base of tongue lesion is seen. A top normal 1.5 cm left level IIb lymph node is noted. Nodule in the left lobe of the thyroid gland measuring 1.9 cm which meets size criteria for dedicated ultrasound evaluation. Multiple sub-4 mm nodule seen within the upper lungs. Further evaluation/follow-up is recommended based on oncologic guidelines. A 2.0 cm nodule is present in the superficial aspect of the left parotid gland. This likely represents a primary parotid lesion rather than a metastatic nodule.
[2022-07-08] MEDS: iohexoL 350 MG/ML 100 ML INFUS..BTL 60 ML IV (09:35)
== END 2022-07-08 08:51 | disposition home or self-care (01) ==
LOC: HO.CT 08:50
PROVIDERS: Visit Provider Otolaryngology
DX: R22.1 Localized swelling, mass and lump, neck (principal)
CPT/HCPCS: 70491; Q9967

== ENCOUNTER → 2022-08-20 09:20 | Outpatient (BNVA) | payer OTHER, SELFPAY | PROVIDERS: PCP Pediatrics; Referring Provider Pediatrics; Visit Provider Surgery | DX: R59.0 Localized enlarged lymph nodes (principal) | CPT/HCPCS: 99212 ==

== ENCOUNTER 2023-10-07 09:34 | Outpatient (REF) | payer OTHER, SELFPAY ==
[2023-10-07 14:48] LABS: Basophils Percent Auto 0.4 % (0-2); Eosinophils Absolute Auto 0.1 X10*3/uL (0.0-0.4); Eosinophils Percent Auto 1.8 % (0-4); Hematocrit 36.4 % (42.0-52.0); Hemoglobin 10.3 g/dl (14.0-18.0); Imm Gran Abs Auto 0.03 X10*3/uL (0.00-0.03); Imm Gran Pct Auto 0.5 % (0.0-0.4); Lymphocytes Absolute Auto 1.6 X10*3/uL (1.2-4.9); Lymphocytes Percent Auto 27.5 % (20-40); MANUAL DIFF FLAG SCAN; Mean Corpuscular HGB Conc 28.3 g/dl (31.0-36.0); Mean Corpuscular Hemoglobin 22.2 pg (27.0-33.0); Mean Corpuscular Volume 78.3 fL (80.0-98.0); Monocytes Absolute Auto 0.3 X10*3/uL (0.1-1.2); Monocytes Percent Auto 5.5 % (2-11); Neutrophils Absolute Auto 3.6 x10*3/uL (2.0-8.3); Neutrophils Percent Auto 64.3 % (45-73); PLT CLUMP 1; Red Blood Count 4.65 X10*6/uL (4.60-5.80); Red Cell Distribution Width 17.5 % (11.0-16.0); SCAN SMEAR FLAG 1; White Blood Count 5.6 X10*3/uL (4.8-10.8)
[2023-10-07 14:59] LABS: Alanine Aminotransferase 21 U/L (0-40); Albumin Level 3.7 g/dL (3.5-5.0); Alkaline Phosphatase 73 U/L (39-117); Anion Gap 11 (12-20); Aspartate Amino Transferase 16 U/L (5-37); Bilirubin Direct 0.1 mg/dL (0.0-0.5); Bilirubin Total 0.3 mg/dL (0.0-1.0); Blood Urea Nitrogen 15 mg/dL (9-16); Calcium 8.6 mg/dL (8.4-10.2); Carbon Dioxide 29 mmol/L (22-29); Chloride 103 mmol/L (96-108); Estimated Glomerular Filt Rate > 60; Glucose Fasting 205 mg/dL (60-99); Iron 19 mcg/dL (45-160); Percent Iron Saturation 6 % (15-50); Potassium 4.1 mmol/L (3.3-5.1); Sodium 139 mmol/L (135-145); Total Iron Binding Capacity 321 mcg/dL (228-428); Total Protein 6.4 g/dL (6.5-8.0); Unsaturated Iron Binding 302 ug/dL
[2023-10-07 15:15] LABS: TSH reflex Free T4 0.45 uIU/mL (0.32-4.0)
[2023-10-07 15:16] LABS: Vitamin B12 421 pg/mL (200-900)
[2023-10-07 15:21] LABS: Platelet Count 174 X10*3/uL (160-400)
[2023-10-07 15:23] LABS: SLIDE REVIEW VERIFIED
[2023-10-09 11:14] LABS: Absolute CD4 Count 540 cells/uL (490-1740); Absolute CD8 Count 370 cells/uL (180-1170); Absolute Lymphocytes 1305 cells/uL (850-3900); CD4 CD8 Ratio 1.46 (0.86-5.00); Percent CD4 Cells 41 % (30-61); Percent CD8 Cells 28 % (12-42)
[2023-10-09 17:03] LABS: HIV RNA PCR Qn Copies 125 Copies/mL
== END 2023-10-07 09:35 | disposition home or self-care (01) ==
LOC: HO.CHCLDS 09:34
PROVIDERS: Visit Provider Pediatrics
DX: B20 Human immunodeficiency virus [HIV] disease (principal); D64.9 Anemia, unspecified; E53.8 Deficiency of other specified B group vitamins; E11.9 Type 2 diabetes mellitus without complications; F17.219 Nicotine dependence, cigarettes, with unspecified nicotine-induced disorders
CPT/HCPCS: 36415; 80048; 80076; 82607; 83540; 84443; 85025; 86360; 87536; 87900

== ENCOUNTER 2024-01-14 09:45 | Outpatient (AMB) | payer OTHER, SELFPAY ==
--- NOTE | 2024-01-14 10:13 | MHC.OFFVIS ---
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 Was seen last in November 2017, had US, no follow up. Pt states he has some discoloration over VV and the feeling of crawling under the skin. 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 He had actually seen us back in 2018 regarding venous disease. At that time he had undergone venous insufficiency testing and had not followed up. It has continued to progress over the last 5 or 6 years. Has been fairly compliant with compression elevation and exercise. He is feeling increase in varicosity swelling and discomfort right more so than left. In addition he does have an element of neuropathy of the feet as well. He now presents to us for follow-up evaluation [facility] Medical History Diverticulosis Tubular adenoma Right bundle branch block (RBBB) COVID-19 vaccine series completed Iron deficiency anemia Diabetes Substance abuse in remission Asthma HIV disease Hernia GERD (gastroesophageal reflux disease) Surgical History History of esophagogastroduodenoscopy (EGD) H/O colonoscopy History of intestinal surgery Family History Mother Cervical cancer Maternal Uncle Lung cancer Maternal Uncle Lung cancer Sister Anemia Social History (Updated 01/14/24 @ 10:19 by CLEMENCIA Almonte) Household Members: Spouse and Children Housing: House Are you a primary in home caregiver to a significant other at home: No Do you presently have visiting nurse or other home services: No Alcohol intake: never Patient Tobacco Use Status: Current everyday Tobacco user Tobacco use type: Cigarette Cigarette Packs Per Day: 0.5 Cigarettes Per Day: 10 Years Smoked: 42 service: No Current occupational status: disabled Review of Systems Const Reports as per HPI ENT Reports no additional complaints Card Denies chest pain, Denies chest pain at rest and Denies chest pain with activity Resp Denies chest congestion and Denies cough GI Reports no additional complaints Musc Details: pain over varicosities, aching of lower extremities, swelling, cramping, heaviness and tiredness, itching Denies abnormal gait Skin/Breast Reports pruritus and Denies wounds Neuro Reports no additional complaints and Denies abnormal gait Psych Denies no additional complaints Physical Exam Vital Signs: BMI result Body Mass Index 31.8 Const General: cooperative, healthy appearing and comfortable Orientation/consciousness: oriented to person, oriented to place and oriented to time Neck Carotids: no bruits Chest Chest palpation & inspection: normal inspection of the chest and normal palpation of entire chest wall Resp Effort & Inspection: normal respiratory effort and able to speak in complete sentences Cardio Rate: regular rate Heart sounds: S1 normal heart sound present and S2 normal heart sound present Peripheral pulses: Peripheral pulses 2+ throughout GI Inspection: Yes normal to inspection Skin Other: +2 edema, large rope-like varicosities greater than 4 mm right greater than left CEAP Classification C4 - skin color changes Ep - Etiology Primary As - superficial veins P - reflux General skin exam: dry skin Neuro General: oriented to person, oriented to place and oriented to time Extrem Right lower extremity: full ROM, normal capillary refill and edema Left lower extremity: full ROM, normal capillary refill and edema Psych Mental Status: mental status grossly normal Assessment & Plan Assessment & Plan (1) Varicose veins of right lower extremity with inflammation: Code(s): I83.11 - Varicose veins of right lower extremity with inflammation Plan: In short patient has evidence venous disease. We did discuss the pathophysiology. We did discuss continued conservative measures including compression elevation and exercise. I did take the liberty of ordering repeat venous insufficiency testing since it has nearly been 5-6 years since his last testing. He will follow up with us after testing. Thank you for allowing us to assist in his care Orders: Orders US venous insuf bilat 1 Week I83.11 - Varicose veins of right lower extremity with inflammation Coding Level of Care Code Est Pt Level 4 (47162) Diagnoses Varicose veins of right lower extremity with inflammation I83.11
[2024-01-14 10:14] VITALS: BMI 31.8
== END 2024-01-14 10:36 | disposition home or self-care (01) ==
PROVIDERS: PCP Pediatrics; Visit Provider Surgery Vascular Surgery
DX: I83.11 Varicose veins of right lower extremity with inflammation (principal)
CPT/HCPCS: 99213

== ENCOUNTER → 2024-01-14 09:45 | Outpatient (BNVA) | payer OTHER, SELFPAY | PROVIDERS: PCP Pediatrics; Visit Provider Surgery Vascular Surgery | DX: I83.11 Varicose veins of right lower extremity with inflammation (principal) | CPT/HCPCS: 99212 ==

== ENCOUNTER 2024-03-16 09:58 | Outpatient (REF) | payer OTHER, SELFPAY ==
--- NOTE | ~2024-03-16 | US_ITS ---
EXAMINATION: US LOWER EXTREMITY VENOUS (REFLUX EXAM), BILATERAL CLINICAL INFORMATION: Varicose veins of the right lower extremity with inflammation COMPARISON: Bilateral venous duplex ultrasound dated 06/30/2018 TECHNIQUE: Color flow triplex imaging and compression Doppler was performed to evaluate both the deep and the superficial systems bilaterally. To evaluate the superficial system, the examination was performed in the upright position. Color-flow Doppler ultrasound and compression ultrasound were utilized. In addition, maneuvers were utilized to demonstrate reflux. FINDINGS: 1. DEEP VENOUS ULTRASOUND OF THE RIGHT LOWER EXTREMITY: Common Femoral Vein: Compressible, normal respiratory variation and augmented flow. Femoral Vein: Compressible, normal color flow and augmentation. Popliteal Vein: Compressible, normal augmentation. Deep Reflux: There is no evidence of reflux in the deep system in either the common femoral vein, superficial femoral or the popliteal vein. There is no evidence of a Kang's cyst. 2. SUPERFICIAL ULTRASOUND WITH DOPPLER OF RIGHT LOWER EXTREMITY: GREAT SAPHENOUS VEIN: Saphenofemoral Junction: 0.68 cm; Reflux: 0 ms Proximal Thigh: 0.63 cm; Reflux: 0 ms Mid Thigh: 0.44 cm; Reflux: 0 ms Distal Thigh: 0.45 cm; Reflux: 0 ms At Knee: 0.42 cm; Reflux: 0 ms Proximal Calf: 0.30 cm; Reflux: 0 ms Mid Calf: 0.24 cm; Reflux: 0 ms Distal Calf: 0.29 cm; Reflux: 0 ms SMALL SAPHENOUS VEIN: Saphenopopliteal Junction: 0.17 cm; Reflux: 0 ms Proximal: 0.13 cm; Reflux: 0 ms Distal: 0.21 cm; Reflux: 0 ms PERFORATORS: Location: Proximal calf Size: 0.33; Reflux: NA Location: Mid calf Size: 0.25; Reflux: NA Location: Distal calf Size: 0.21; Reflux: NA 3. DEEP VENOUS ULTRASOUND OF THE LEFT LOWER EXTREMITY: Common Femoral Vein: Compressible, normal respiratory variation and augmented flow. Femoral Vein: Compressible, normal color flow and augmentation. Popliteal Vein: Compressible, normal augmentation. Deep Reflux: There is no evidence of reflux in the deep system in either the common femoral vein, superficial femoral or the popliteal vein. There is no evidence of a Kang's cyst. 4. SUPERFICIAL ULTRASOUND WITH DOPPLER OF LEFT LOWER EXTREMITY: GREAT SAPHENOUS VEIN: Saphenofemoral Junction: 0.82 cm; Reflux: 0 ms Proximal Thigh: 0.76 cm; Reflux: 0 ms Mid Thigh: 0.28 cm; Reflux: 0 ms Distal Thigh: 0.36 cm; Reflux: 0 ms At Knee: 0.34 cm; Reflux: 0 ms Proximal Calf: 0.30 cm; Reflux: 0 ms Mid Calf: 0.24 cm; Reflux: 0 ms Distal Calf: 0.21 cm; Reflux: 0 ms SMALL SAPHENOUS VEIN: Saphenopopliteal Junction: 0.37 cm; Reflux: 0 ms Proximal: 0.19 cm; Reflux: 0 ms Distal: 0.14 cm; Reflux: 0 ms PERFORATORS: Location: Mid calf Size: 0.27; Reflux: NA Location: Mid calf Size: 0.13; Reflux: NA US/US venous insuf bilat IMPRESSION: 1. No evidence of deep venous thrombosis bilaterally. 2. No significant venous insufficiency bilaterally.
== END 2024-03-16 09:59 | disposition home or self-care (01) ==
LOC: HO.US 09:58
PROVIDERS: PCP Pediatrics; Visit Provider Surgery Vascular Surgery
DX: I83.11 Varicose veins of right lower extremity with inflammation (principal)
CPT/HCPCS: 93970

== ENCOUNTER 2024-03-26 10:05 | Outpatient (REF) | payer OTHER, SELFPAY ==
[2024-03-26 15:01] LABS: Iron 11 mcg/dL (45-160); Magnesium 2.2 mg/dL (1.6-2.6); Percent Iron Saturation 3 % (15-50); Total Iron Binding Capacity 337 mcg/dL (228-428); Unsaturated Iron Binding 326 ug/dL
[2024-03-26 15:09] LABS: TSH reflex Free T4 0.56 uIU/mL (0.32-4.0)
[2024-03-26 15:24] LABS: Folate 10.4 ng/mL (> or = 4.0); Vitamin B12 262 pg/mL (200-900)
== END 2024-03-26 10:06 | disposition home or self-care (01) ==
LOC: HO.CHCLDS 10:05
PROVIDERS: Visit Provider Pediatrics
DX: E53.8 Deficiency of other specified B group vitamins (principal); E11.9 Type 2 diabetes mellitus without complications
CPT/HCPCS: 36415; 82607; 82746; 83540; 83735; 84443

== ENCOUNTER 2024-04-20 09:15 | Outpatient (AMB) | payer OTHER, SELFPAY ==
[2024-04-20 09:17] VITALS: BMI 31.8
--- NOTE | 2024-04-20 09:17 | MHC.OFFVIS ---
Vital Signs 04/20/24 09:17 Height 5 ft 6 in Weight 197 lb BMI 31.8 Intake Visit Reasons: f/u s/p 03/16/24 Intake Note: follow up 03/16/24 for Right LE is worse than the Left LE. Pt states he has doscoloration over VV w/ a tingling/crawling sensation under the skin where his VV are. 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 He actually reports that he noted some veins moving around his body. He had this unusual feeling and was concerned about it. 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 He does have back pain issues. He now presents for follow-up with venous insufficiency testing [facility] Medical History Diverticulosis Tubular adenoma Right bundle branch block (RBBB) COVID-19 vaccine series completed Iron deficiency anemia Diabetes Substance abuse in remission Asthma HIV disease Hernia GERD (gastroesophageal reflux disease) Surgical History History of esophagogastroduodenoscopy (EGD) H/O colonoscopy History of intestinal surgery Family History Mother Cervical cancer Maternal Uncle Lung cancer Maternal Uncle Lung cancer Sister Anemia Social History Household Members: Spouse and Children Housing: House Are you a primary hospice care transitions coordinator to a significant other at home: No Do you presently have visiting nurse or other home services: No Alcohol intake: never Patient Tobacco Use Status: Current everyday Tobacco user Tobacco use type: Cigarette Cigarette Packs Per Day: 0.5 Cigarettes Per Day: 10 Years Smoked: 42 service: No Current occupational status: disabled Review of Systems Const Reports as per HPI ENT Reports no additional complaints Card Denies chest pain, Denies chest pain at rest and Denies chest pain with activity Resp Denies chest congestion and Denies cough GI Reports no additional complaints Musc Details: pain over varicosities, aching of lower extremities, swelling, cramping, heaviness and tiredness, itching Denies abnormal gait Skin/Breast Reports pruritus and Denies wounds Neuro Reports no additional complaints and Denies abnormal gait Psych Denies no additional complaints Physical Exam Vital Signs: BMI result Body Mass Index 31.8 Const General: cooperative, healthy appearing and comfortable Orientation/consciousness: oriented to person, oriented to place and oriented to time Neck Carotids: no bruits Chest Chest palpation & inspection: normal inspection of the chest and normal palpation of entire chest wall Resp Effort & Inspection: normal respiratory effort and able to speak in complete sentences Cardio Rate: regular rate Heart sounds: S1 normal heart sound present and S2 normal heart sound present Peripheral pulses: Peripheral pulses 2+ throughout GI Inspection: Yes normal to inspection Skin Other: +2 edema, spider telangiectasias General skin exam: dry skin Neuro General: oriented to person, oriented to place and oriented to time Extrem Right lower extremity: full ROM, normal capillary refill and edema Left lower extremity: full ROM, normal capillary refill and edema Psych Mental Status: mental status grossly normal Results Reviewed Results Reviewed: Brief summary of venous insufficiency testing is as follows: right great saphenous vein: negative right small saphenous vein: negative right accessory vein: none present left great saphenous vein: negative left small saphenous vein: negative left accessory vein: none present Please note there is no evidence of any venous aneurysms or significant tortuosity Assessment & Plan Assessment & Plan (1) Varicose veins of right lower extremity with inflammation: Code(s): I83.11 - Varicose veins of right lower extremity with inflammation Category: Medical Plan: Unclear etiology of lower extremity pain. He has normal venous testing and does have palpable arterial pulses. This may be more neurogenic in nature. He does report back pain issues along with a history of diabetes in addition to a history of polysubstance abuse. This may all be contributing to an element of neuropathy. He has stable from a vascular perspective and will follow up with us on an as-needed basis. Thank you for allowing us to assist in his care. If there are any questions or concerns please do not hesitate to contact us. Coding Level of Care Code Est Pt Level 4 (78741) Diagnoses Varicose veins of right lower extremity with inflammation I83.11
== END 2024-04-20 09:42 | disposition home or self-care (01) ==
PROVIDERS: PCP Pediatrics; Visit Provider Surgery Vascular Surgery
DX: I83.11 Varicose veins of right lower extremity with inflammation (principal)
CPT/HCPCS: 99213

== ENCOUNTER → 2024-04-20 09:15 | Outpatient (BNVA) | payer OTHER, SELFPAY | PROVIDERS: PCP Pediatrics; Visit Provider Surgery Vascular Surgery | DX: I83.11 Varicose veins of right lower extremity with inflammation (principal) | CPT/HCPCS: 99212 ==

== ENCOUNTER 2024-09-29 09:56 | Outpatient (REF) | payer OTHER, SELFPAY ==
[2024-09-29 11:47] LABS: MANUAL DIFF FLAG SCAN; SCAN SMEAR FLAG 1
[2024-09-29 11:48] LABS: PLT ABN DIST 1
[2024-09-29 11:49] LABS: Basophils Percent Auto 0.4 % (0-2); Eosinophils Absolute Auto 0.1 X10*3/uL (0.0-0.4); Eosinophils Percent Auto 2.1 % (0-4); Hematocrit 35.2 % (42.0-52.0); Hemoglobin 10.2 g/dl (14.0-18.0); Imm Gran Abs Auto 0.03 X10*3/uL (0.00-0.03); Imm Gran Pct Auto 0.6 % (0.0-0.4); Lymphocytes Absolute Auto 1.5 X10*3/uL (1.2-4.9); Mean Corpuscular Hemoglobin 21.7 pg (27.0-33.0); Mean Corpuscular Volume 74.7 fL (80.0-98.0); Mean Platelet Volume 11.1 fL (9.4-12.4); Monocytes Absolute Auto 0.2 X10*3/uL (0.1-1.2); Monocytes Percent Auto 4.2 % (2-11); Neutrophils Absolute Auto 3.3 x10*3/uL (2.0-8.3); Neutrophils Percent Auto 63.7 % (45-73); Platelet Count 170 X10*3/uL (160-400); Red Blood Count 4.71 X10*6/uL (4.60-5.80); White Blood Count 5.2 X10*3/uL (4.8-10.8)
[2024-09-29 11:51] LABS: Appearance Urine Clear; Color Urine Yellow; Glucose Urine UA Negative (Negative); Leukocyte Esterase Urine Negative (Negative); Nitrite Urine Negative (Negative); PH 5.5 (5.0-9.0); UMIC TRIGGER UACC YES; Urine Blood Small (1+) (Negative); Urine Ketones Negative (Negative); Urine Protein Negative (Neg-Trace)
[2024-09-29 12:05] LABS: Alanine Aminotransferase 17 U/L (0-40); Albumin Level 3.9 g/dL (3.5-5.0); Alkaline Phosphatase 67 U/L (39-117); Anion Gap 9 (12-20); Aspartate Amino Transferase 15 U/L (5-37); Bilirubin Total 0.3 mg/dL (0.0-1.0); Blood Urea Nitrogen 14 mg/dL (9-16); Calcium 8.5 mg/dL (8.4-10.2); Carbon Dioxide 30 mmol/L (22-29); Chloride 105 mmol/L (96-108); Cholesterol 123 mg/dL (<200); Estimated Glomerular Filt Rate > 60; Glucose Random 212 mg/dL (60-115); HDL Cholesterol 40 mg/dL (>40); LDL Cholesterol Calculated 59 mg/dL (<100); Potassium 4.3 mmol/L (3.3-5.1); Sodium 140 mmol/L (135-145); Total Protein 6.7 g/dL (6.5-8.0); Triglycerides 121 mg/dL (<150)
[2024-09-29 12:08] LABS: Bacteria Urine None Seen (None Seen); Hyaline Casts Urine 0-2 /LPF (0-2); RBC Urine 0-2 /HPF (0-2); Squamous Epithelial Cell Urine 0-2 /HPF (0-2); WBC Urine 0-5 /HPF (0-5)
[2024-09-29 12:23] LABS: HBS Num1 90.28 mIU/mL (0-7.99); HBsAGNum1 0.51 S/CO (0.00-0.99); Hepatitis B Surface Antigen Negative (Negative); ~HepC Num1 7.11 S/CO (0.00-0.79); ~Hepatitis B Surface Antibody REACTIVE (Nonreactive); ~Hepatitis C Antibody Reactive (Nonreactive)
[2024-09-29 12:25] LABS: Hepatitis A Antibody IgG Nonreactive (Nonreactive); ~Hepatitis A Antibody IgG 0.62 S/CO (0.00-0.99)
[2024-09-29 12:31] LABS: Syphilis Screen Nonreactive (Nonreactive)
[2024-09-29 12:45] LABS: Reflex LDLD? No
[2024-09-29 13:21] LABS: HBc Num2 4.46 S/CO; Hepatitis B Core Antibody Reactive (Nonreactive)
[2024-09-29 13:46] LABS: SLIDE REVIEW VERIFIED
[2024-09-29 14:52] LABS: CT PCR NOT DETECTED (Not Detect.); NG PCR NOT DETECTED (Not Detect.)
[2024-10-01 14:39] LABS: HIV RNA PCR Qn Copies <20 DETECTED copies/mL (NOT DETECTED); HIV RNA PCR Qn Log Copies <1.30 DETECTED (NOT DETECTED)
[2024-10-01 18:37] LABS: HCV Log PCR <1.18 NOT DETECTED Log IU/mL (NOT DETECTED); HepC Viral Load <15 NOT DETECTED IU/mL (NOT DETECTED)
[2024-10-01 23:53] LABS: TS Negative Control Passed; TS Panel A 0; TS Panel B 0; TS Positive Control Passed; TSpotTB Negative (Negative)
[2024-10-05 13:59] LABS: Absolute CD3 Count 871 cells/uL (840-3060); Absolute CD4 Count 544 cells/uL (490-1740); Absolute CD8 Count 351 cells/uL (180-1170); Absolute Lymphocytes 1500 cells/uL (850-3900); CD4 CD8 Ratio 1.55 (0.86-5.00); Percent CD3 Cells 58 % (57-85); Percent CD4 Cells 36 % (30-61); Percent CD8 Cells 23 % (12-42)
== END 2024-09-29 09:57 | disposition home or self-care (01) ==
LOC: HO.HHCL 09:56
PROVIDERS: Visit Provider Internal Medicine
DX: Z11.1 Encounter for screening for respiratory tuberculosis (principal); Z21 Asymptomatic human immunodeficiency virus [HIV] infection status; E11.9 Type 2 diabetes mellitus without complications; D64.9 Anemia, unspecified
CPT/HCPCS: 36415; 80053; 80061; 81001; 85025; 86359; 86360; 86481; 86704; 86706; 86708; 86780; 86803; 87340; 87491; 87522; 87536; 87591

== ENCOUNTER 2024-10-01 10:29 | Outpatient (REF) | payer OTHER, SELFPAY ==
[2024-10-01 14:29] LABS: Estimated Average Glucose 123 mg/dL; Hemoglobin A1C 109.2936 umol/L; Hemoglobin A1c % 5.9 % (<6.0); Total Hemoglobin (HGBA1C) 2699.2197 umol/L
[2024-10-01 14:38] LABS: Magnesium 2.1 mg/dL (1.6-2.6)
[2024-10-01 15:04] LABS: Folate 9.4 ng/mL (> or = 4.0); Prostate Specific Antigen Scr 0.41 ng/mL (<0.05-4.0); Vitamin B12 279 pg/mL (200-900)
== END 2024-10-01 10:30 | disposition home or self-care (01) ==
LOC: HO.CHCLDS 10:29
PROVIDERS: Visit Provider Pediatrics
DX: Z13.1 Encounter for screening for diabetes mellitus (principal); D63.8 Anemia in other chronic diseases classified elsewhere; Z12.5 Encounter for screening for malignant neoplasm of prostate
CPT/HCPCS: 36415; 82607; 82746; 83036; 83735; 84153; 84443

== ENCOUNTER 2025-03-24 11:08 | Outpatient (REF) | payer OTHER, SELFPAY ==
[2025-03-24 12:11] LABS: MANUAL DIFF FLAG NO
[2025-03-24 12:17] LABS: Basophils Percent Auto 0.2 % (0-2); Eosinophils Absolute Auto 0.1 X10*3/uL (0.0-0.4); Eosinophils Percent Auto 1.4 % (0-4); Hematocrit 32.2 % (42.0-52.0); Hemoglobin 9.5 g/dl (14.0-18.0); Imm Gran Abs Auto 0.02 X10*3/uL (0.00-0.03); Imm Gran Pct Auto 0.4 % (0.0-0.4); Lymphocytes Absolute Auto 1.7 X10*3/uL (1.2-4.9); Lymphocytes Percent Auto 30.9 % (20-40); Mean Corpuscular HGB Conc 29.5 g/dl (31.0-36.0); Mean Corpuscular Hemoglobin 21.9 pg (27.0-33.0); Mean Corpuscular Volume 74.4 fL (80.0-98.0); Mean Platelet Volume 11.6 fL (9.4-12.4); Monocytes Absolute Auto 0.3 X10*3/uL (0.1-1.2); Monocytes Percent Auto 5.7 % (2-11); Neutrophils Absolute Auto 3.4 x10*3/uL (2.0-8.3); Neutrophils Percent Auto 61.4 % (45-73); Platelet Count 158 X10*3/uL (160-400); Red Blood Count 4.33 X10*6/uL (4.60-5.80); Red Cell Distribution Width 17.6 % (11.0-16.0); White Blood Count 5.6 X10*3/uL (4.8-10.8)
[2025-03-24 12:41] LABS: Alanine Aminotransferase 19 U/L (0-40); Albumin Level 3.6 g/dL (3.5-5.0); Alkaline Phosphatase 70 U/L (39-117); Anion Gap 10 (12-20); Aspartate Amino Transferase 17 U/L (5-37); Bilirubin Direct 0.1 mg/dL (0.0-0.5); Bilirubin Total 0.3 mg/dL (0.0-1.0); Blood Urea Nitrogen 22 mg/dL (9-16); Calcium 8.5 mg/dL (8.4-10.2); Carbon Dioxide 26 mmol/L (22-29); Chloride 110 mmol/L (96-108); Estimated Glomerular Filt Rate > 60; Glucose Random 183 mg/dL (60-115); Iron 23 mcg/dL (45-160); Lipase 73 U/L (8-78); Percent Iron Saturation 8 % (15-50); Potassium 4.1 mmol/L (3.3-5.1); Sodium 142 mmol/L (135-145); Total Iron Binding Capacity 297 mcg/dL (228-428); Total Protein 6.1 g/dL (6.5-8.0); Unsaturated Iron Binding 274 ug/dL
[2025-03-24 12:45] LABS: Vitamin D 25-OH Total 15.3 ng/mL (>30)
[2025-03-26 07:53] LABS: HIV RNA PCR Qn Copies 29 copies/mL (NOT DETECTED); HIV RNA PCR Qn Log Copies 1.46 (NOT DETECTED)
[2025-03-30 02:08] LABS: Absolute CD4 Count 514 cells/uL (490-1740); Absolute CD8 Count 315 cells/uL (180-1170); Absolute Lymphocytes 1235 cells/uL (850-3900); CD4 CD8 Ratio 1.63 (0.86-5.00); Percent CD4 Cells 42 % (30-61); Percent CD8 Cells 25 % (12-42)
== END 2025-03-24 11:09 | disposition home or self-care (01) ==
LOC: HO.CHCLDS 11:08
PROVIDERS: Visit Provider Pediatrics
DX: D84.9 Immunodeficiency, unspecified (principal); D63.8 Anemia in other chronic diseases classified elsewhere; Z71.3 Dietary counseling and surveillance; Z71.82 Exercise counseling
CPT/HCPCS: 36415; 80048; 80076; 82306; 83540; 83690; 85025; 86360; 87536

== ENCOUNTER 2025-06-06 09:00 | Outpatient (RCR) | payer OTHER, SELFPAY ==
[2025-05-02 09:14] VITALS: BP 148/75; PULSE 74; RESP 16; TEMP 36.4; O2SAT 99
[2025-05-09 09:09] VITALS: BP 141/68; PULSE 81; RESP 18; TEMP 36.6; O2SAT 96
[2025-05-16 08:47] VITALS: BP 147/76; PULSE 82; RESP 16; TEMP 36.9; O2SAT 96
[2025-05-23 08:55] VITALS: BP 148/81; PULSE 75; RESP 16; TEMP 37.1; O2SAT 96
[2025-05-31 08:50] VITALS: BP 152/82; PULSE 74; RESP 18; TEMP 36.6
[2025-06-06 09:00] VITALS: BP 147/81; PULSE 73; RESP 16; TEMP 36.6; O2SAT 98
[2025-06-06 09:26] LABS: Hematocrit 42.8 % (42.0-52.0); Hemoglobin 12.8 g/dl (14.0-18.0); Mean Corpuscular HGB Conc 29.9 g/dl (31.0-36.0); Mean Corpuscular Hemoglobin 24.1 pg (27.0-33.0); Mean Corpuscular Volume 80.6 fL (80.0-98.0); NRBC Abs Auto 0.000 X10*3/uL (0.0-0.012); NRBC Pct Auto 0.0 /100WBC (0.0-0.2); Platelet Count 130 X10*3/uL (160-400); Red Blood Count 5.31 X10*6/uL (4.60-5.80); White Blood Count 6.6 X10*3/uL (4.8-10.8)
[2025-06-06 10:06] LABS: Ferritin 66 ng/mL (20-250)
== END 2025-06-06 09:28 | disposition home or self-care (01) ==
LOC: HO.INF 09:00
PROVIDERS: Visit Provider Nurse Practitioner Family
DX: D64.9 Anemia, unspecified (principal)
CPT/HCPCS: 36415; 82728; 85027; 96365; 96374; J1756

== ENCOUNTER 2025-09-15 09:05 | Outpatient (REF) | payer OTHER, SELFPAY ==
[2025-09-15 14:11] LABS: MANUAL DIFF FLAG NO
[2025-09-15 14:16] LABS: Hematocrit 43.1 % (42.0-52.0); Hemoglobin 13.2 g/dl (14.0-18.0); Imm Gran Abs Auto 0.03 X10*3/uL (0.00-0.03); Imm Gran Pct Auto 0.5 % (0.0-0.4); Lymphocytes Absolute Auto 1.6 X10*3/uL (1.2-4.9); Mean Corpuscular HGB Conc 30.6 g/dl (31.0-36.0); Mean Corpuscular Hemoglobin 28.0 pg (27.0-33.0); Mean Corpuscular Volume 91.3 fL (80.0-98.0); NRBC Abs Auto 0.000 X10*3/uL (0.0-0.012); NRBC Pct Auto 0.0 /100WBC (0.0-0.2); Platelet Count 150 X10*3/uL (160-400); Red Blood Count 4.72 X10*6/uL (4.60-5.80); White Blood Count 6.0 X10*3/uL (4.8-10.8)
[2025-09-15 14:39] LABS: Alanine Aminotransferase 14 U/L (0-40); Albumin Level 4.2 g/dL (3.5-5.0); Alkaline Phosphatase 61 U/L (39-117); Anion Gap 11 (12-20); Aspartate Amino Transferase 19 U/L (5-37); Blood Urea Nitrogen 18 mg/dL (9-16); Calcium 9.0 mg/dL (8.4-10.2); Carbon Dioxide 29 mmol/L (22-29); Chloride 106 mmol/L (96-108); Cholesterol 116 mg/dL (<200); Estimated Glomerular Filt Rate > 60; HDL Cholesterol 44 mg/dL (>40); Iron 71 mcg/dL (45-160); Percent Iron Saturation 25 % (15-50); Potassium 4.6 mmol/L (3.3-5.1); Sodium 141 mmol/L (135-145); Total Iron Binding Capacity 285 mcg/dL (228-428); Total Protein 6.8 g/dL (6.5-8.0); Triglycerides 91 mg/dL (<150); Unsaturated Iron Binding 214 ug/dL
[2025-09-15 14:46] LABS: Microalbum/Creatinine Ratio Ur 105.6 ug/mg cr (<30)
[2025-09-15 15:05] LABS: Folate 11.7 ng/mL (> or = 4.0); Vitamin B12 282 pg/mL (200-900)
[2025-09-16 07:37] LABS: ~HepC Num1 5.74 S/CO (0.00-0.79); ~Hepatitis C Antibody Reactive (Nonreactive)
[2025-09-16 15:29] LABS: HIV RNA PCR Qn Copies 174 copies/mL (NOT DETECTED); HIV RNA PCR Qn Log Copies 2.24 (NOT DETECTED)
[2025-09-17 21:19] LABS: Absolute CD3 Count 900 cells/uL (840-3060); Absolute CD8 Count 356 cells/uL (180-1170); Percent CD3 Cells 64 % (57-85); Percent CD8 Cells 25 % (12-42)
[2025-09-19 20:53] LABS: HCV Log PCR <1.18 NOT DETECTED Log IU/mL (NOT DETECTED); HepC Viral Load <15 NOT DETECTED IU/mL (NOT DETECTED)
== END 2025-09-15 09:06 | disposition home or self-care (01) ==
LOC: HO.CHCLDS 09:05
PROVIDERS: PCP Pediatrics; Visit Provider Internal Medicine
DX: Z21 Asymptomatic human immunodeficiency virus [HIV] infection status (principal); Z11.59 Encounter for screening for other viral diseases; E11.9 Type 2 diabetes mellitus without complications; F11.20 Opioid dependence, uncomplicated; M25.512 Pain in left shoulder; G89.29 Other chronic pain; Z13.21 Encounter for screening for nutritional disorder
CPT/HCPCS: 36415; 80053; 80061; 82043; 82306; 82570; 82607; 82746; 83540; 84443; 85025; 86359; 86360; 86803; 87522; 87536